=== PATIENT | female | born 1945 | race Caucasian/White ===

== ENCOUNTER 2017-01-13 07:01 | Emergency (ER) | payer MEDICARE ==
--- NOTE | 2017-01-13 07:17 | ED.PDOC ---
History of Present Illness - General Chief Complaint: Trauma Stated Complaint: Low back pain Time Seen by Provider: 01/13/17 07:08 Source: patient, RN notes reviewed, Vital Signs reviewed Exam Limitations: no limitations - History of Present Illness Initial Comments: Patient reports that she slipped and fell onto her bottom this morning and is now experiencing low back pain. Denies any other injury. Did not hit her head. Pain does not radiate. No numbness, tingling or weakness down legs. No bowel/ bladder incontinence. Timing/Duration: 1 hour Severity: moderate Improving Factors: rest Worsening Factors: movement Associated Symptoms: denies symptoms Allergies/Adverse Reactions: Allergies Penicillins Allergy (Verified 01/13/17 07:23) Unknown Sulfa Antibiotics Allergy (Verified 01/13/17 07:23) Unknown Home Medications: Ambulatory Orders Acetamin W/Cod #3 Tab [Tylenol w/CODEINE #3] 1 ea PO Q6HRS PRN #15 tab 01/13/17 Cyclobenzaprine HCl [Flexeril] 5 mg PO Q8HRS PRN #12 tab 01/13/17 Fluticasone/Salmeterol 250/50 [Advair Diskus] 1 puff INH DAILY 01/13/17 Metoprolol Tartrate 01/13/17 metFORMIN XR 01/13/17 Review of Systems - Review of Systems Constitutional: States: no symptoms reported EENTM: States: no symptoms reported Respiratory: States: no symptoms reported Cardiology: States: no symptoms reported Gastrointestinal/Abdominal: States: no symptoms reported Genitourinary: States: no symptoms reported Musculoskeletal: States: see HPI, back pain. Denies: neck pain Skin: States: no symptoms reported Neurological: States: no symptoms reported. Denies: numbness, paresthesia, tingling, weakness Endocrine: States: no symptoms reported Family Medical History - Family History Mother Living Status: Hx Family Diabetes: Yes Physical Exam - Physical Exam General Appearance: Alert, Comfortable, No apparent distress, Well Developed, Well Groomed, Well Hydrated, Well Nourished Neck: non-tender, full range of motion, supple, normal inspection Respiratory: chest non-tender, lungs clear, normal breath sounds, no respiratory distress, no accessory muscle use Cardiovascular/Chest: normal peripheral pulses, regular rate, rhythm, no edema, no gallop, no JVD, no murmur Peripheral Pulses: dorsalis pedis,right: 2+, dorsalis pedis,left: 2+ Gastrointestinal/Abdominal: normal bowel sounds, soft, tenderness - mild, diffuse Back Exam: no CVA tenderness, vertebral tenderness - L spine Extremity: non-tender, normal inspection, no pedal edema Neurologic: no motor/sensory deficits, alert, normal mood/affect, oriented x 3 Skin Exam: normal color, warm/dry Lymphatic: no adenopathy Progress - EKG/XRAY/CT Xray Comments: L-Spine: no ac [place] injury, no fracture. Sacrum: osteoarthritis, no fracture Departure - Departure Clinical Impression: Lumbar back sprain, Contusion Clinical Impression: (Ruled Out): Contusion and laceration of left cerebral hemisphere with loss of consciousness Time of Disposition: 08:08 Disposition: Discharge to Home or Self Care Condition: Good Departure Forms: ED Discharge - Pt. Copy, Patient Portal Self Enrollment Diet: resume usual diet Activity: increase activity as tolerated Prescriptions: Acetamin W/Cod #3 Tab [Tylenol w/CODEINE #3] 1 ea PO Q6HRS PRN #15 tab PRN Reason: Pain -- Moderate To Severe Cyclobenzaprine HCl [Flexeril] 5 mg PO Q8HRS PRN #12 tab PRN Reason: Muscle Spasms Home Medications: Ambulatory Orders Acetamin W/Cod #3 Tab [Tylenol w/CODEINE #3] 1 ea PO Q6HRS PRN #15 tab 01/13/17 Cyclobenzaprine HCl [Flexeril] 5 mg PO Q8HRS PRN #12 tab 01/13/17 Fluticasone/Salmeterol 250/50 [Advair Diskus] 1 puff INH DAILY 01/13/17 Metoprolol Tartrate 01/13/17 metFORMIN XR 01/13/17 Additional Instructions: Follow up with your doctor in 3-5 days
[2017-01-13 07:23] VITALS: TEMP 98.6; O2SAT 94
--- NOTE | 2017-01-13 07:50 | RAD ---
EXAM DESCRIPTION: Lumbar Spine 3 Views CLINICAL HISTORY: Lumbar spine pain. Fall injury FINDINGS/ IMPRESSION: Lumbar spondylosis with no fracture or subluxation. Advanced facet arthrosis L4-5 and L5-S1. Mild levoscoliosis. A few small bridging vertebral osteophytes Electronically signed by: Bautista Henriquez MD 01/13/2017 7:49 AM CDT
--- NOTE | 2017-01-13 07:51 | RAD ---
EXAM DESCRIPTION: Sacrum Coccyx CLINICAL HISTORY: Fall injury. 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 Sacral neural foraminal lines appear intact. No sacral or cortex sagittal fracture. No fracture of the visualized proximal femora. No fracture of the bony pelvis Electronically signed by: Bautista Henriquez MD 01/13/2017 7:50 AM CDT
[2017-01-13] MEDS ORDERED: ACETAMINOPHEN W/COD #3 TAB 1 EA TAB PO ONE (07:55)
[2017-01-13 08:13] VITALS: BP 178/78
== END 2017-01-13 08:14 | disposition home or self-care (01) ==
LOC: ER 07:01
DX: S33.5XXA Sprain of ligaments of lumbar spine, initial encounter (principal); Z88.0 Allergy status to penicillin; Z88.2 Allergy status to sulfonamides; Z79.899 Other long term (current) drug therapy; W01.0XXA Fall on same level from slipping, tripping and stumbling without subsequent striking against object, initial encounter

== ENCOUNTER 2017-01-15 14:43 | Emergency (ER) | payer MEDICARE ==
--- NOTE | 2017-01-15 14:56 | ED.PDOC ---
History of Present Illness - General Chief Complaint: Abdominal Pain Stated Complaint: Vomiting and not eating Time Seen by Provider: 01/15/17 14:44 Information Source: patient, RN notes reviewed, Vital Signs reviewed, EMS Exam Limitations: no limitations - History of Present Illness Initial Comments: Patient does not know why she was brought in. Home health is concerned because she vomited X1 after fall on Wed and now is not eating well. They are also concerned that she is having right hip pain. She was seen here 2 days ago for a fall at home. She fell onto her bottom and was complaining of low back pain at that time. She denied and continues to deny hitting her head. Abdominal Pain Onset Location: generalized abdomen Pain Radiation: no radiation Quality: mild, dull Timing/Duration: days - 2 Improving Factors: nothing Worsening Factors: nothing Associated Symptoms: nausea/vomiting Review of Systems - Review of Systems Constitutional: States: no symptoms reported. Denies: chills, diaphoresis, fever, malaise, weakness EENTM: States: no symptoms reported Respiratory: States: no symptoms reported. Denies: short of breath Cardiology: States: no symptoms reported. Denies: chest pain, syncope Gastrointestinal/Abdominal: States: abdominal pain, nausea, vomiting Genitourinary: States: no symptoms reported Musculoskeletal: States: no symptoms reported. Denies: joint pain Skin: States: no symptoms reported Neurological: States: no symptoms reported. Denies: headache, numbness, paresthesia, tingling, weakness Endocrine: States: no symptoms reported Hematologic/Lymphatic: States: no symptoms reported Past Medical History (General) - Patient Medical History Hx Stroke: No Hx Dementia: Yes Hx of COPD: Yes - Also has seasonal allergies Hx Congestive Heart Failure: No Hx Hypertension: Yes Hx Diabetes: Yes - Vaccination History Hx Influenza Vaccination: No - unknown Hx Pneumococcal Vaccination: No - unknown - Social History Hx Tobacco Use: Yes - Quit 2013 Family Medical History - Family History Mother Living Status: Hx Family Diabetes: Yes Physical Exam - Physical Exam General Appearance: Alert, Comfortable, No apparent distress, Well Developed, Well Groomed, Well Nourished Eyes, Ears, Nose, Throat Exam: PERRL/EOMI, normal ENT inspection, other - Dry mucous membranes Neck: non-tender, full range of motion, supple, normal inspection Respiratory: chest non-tender, lungs clear, normal breath sounds, no respiratory distress, no accessory muscle use Cardiovascular/Chest: regular rate, rhythm, no edema, no gallop, no JVD, no murmur Gastrointestinal/Abdominal: normal bowel sounds, distended, guarding - Diffuse, tenderness - Disfuse Back Exam: no vertebral tenderness Extremity: normal range of motion, non-tender, normal inspection, other - Good ROM w/o pain right hip Neurologic: clinical massage therapist II-XII nml as tested, no motor/sensory deficits, alert, normal mood/affect, oriented x 3 Skin Exam: normal color, warm/dry Progress - Progress Progress: 01/15/17 16:44 Despite normal joint exam sister is requesting that an X-ray of her hip be done. Will order. - Results/Orders Results/Orders: Vital Signs - 24 hr 01/15/17 15:00 Temperature 98.0 F Pulse Rate [ 70 Apical] Respiratory 18 Rate Blood Pressure 172/90 [Left Arm] O2 Sat by Pulse 95 Oximetry Laboratory Tests 01/15/17 15:21 WBC 9.9 RBC 5.19 Hgb 12.7 Hct 39.6 MCV 76.2 L MCH 24.4 L MCHC 32.0 L RDW 16.5 H Plt Count 234 MPV 9.5 Absolute Neuts (auto) 8.20 H Absolute Lymphs (auto) 0.90 L Absolute Monos (auto) 0.70 Absolute Eos (auto) 0.00 Absolute Basos (auto) 0.10 Neutrophils % 83.3 H Lymphocytes % 9.0 L Monocytes % 6.7 Eosinophils % 0.1 L Basophils % 0.9 Sodium 133 L Potassium 3.7 Chloride 91 L Carbon Dioxide 32 H Anion Gap 13.7 BUN 17 Creatinine 0.69 BUN/Creatinine Ratio 24.6 H Random Glucose 263 H Serum Osmolality 277.1 Calcium 9.3 Total Bilirubin 1.2 H AST 66 H ALT 51 Alkaline Phosphatase 196 H Serum Total Protein 7.5 Albumin 3.7 Globulin 3.8 H Albumin/Globulin Ratio 1.0 L Amylase 32 Lipase 26 - EKG/XRAY/CT XRAY: hip - No hip fracture CT Ordered: Yes - Head: No acute intracranial abnormality CT Interpretation Call Back: - Abd/Pelvis - Bilateral adrenal masses, Air- fluid levels in colon, o/w nl Departure - Departure Clinical Impression: Anorexia Lumbar back sprain Qualifiers: Encounter type: subsequent encounter Qualifier Code: (S33.5XXD) Sprain of ligaments of lumbar spine, subsequent encounter Time of Disposition: 17:49 Disposition: Discharge to Home or Self Care Condition: Good Departure Forms: ED Discharge - Pt. Copy, Patient Portal Self Enrollment Instructions: DI for Low Back Pain Diet: resume usual diet Activity: increase activity as tolerated Referrals: [Primary Care Provider] - 1-5 Days Home Medications: Ambulatory Orders Albuterol Sulfate [Proair Hfa] 108 mcg IN TID 01/15/17 Esomeprazole Magnesium [Nexium] 20 mg PO DAILY 01/15/17 Magnesium [Magnesium] 400 mg PO BID 01/15/17 Metformin HCl 500 mg PO BID 01/15/17 Metoprolol Succinate [Metoprolol Succinate ER] 50 mg PO DAILY 01/15/17 Nicotine [Nicotine Transdermal Syst] 7 mg TD DAILY 01/15/17 Potassium Chloride [Potassium Chloride ER] 10 meq PO DAILY 01/15/17
[2017-01-15] MEDS ORDERED: ONDANSETRON INJ 4 MG/2 ML VIAL IV ONE (15:03)
[2017-01-15] MEDS ORDERED: SODIUM CHLORIDE 0.9% 1000ML 1,000 ML IVS ONE (15:03)
[2017-01-15 15:43] VITALS: TEMP 98
--- NOTE | 2017-01-15 16:33 | CT ---
EXAM DESCRIPTION: Abdomen/Pelvis w/Contrast CLINICAL HISTORY: Abd pain/N/V/Anorexia COMPARISON: None Available TECHNIQUE: Contiguous axial images of the abdomen and pelvis were obtained after the administration of intravenous contrast followed by reconstruction images. FINDINGS: Linear and bandlike opacities within the lungs may represent scar versus subsegmental atelectasis. There is atherosclerosis. There are coronary arterial calcifications. There is elevation of the right hemidiaphragm. Patient is status post cholecystectomy. There is dilatation of the biliary system not unusual after cholecystectomy. There is no discrete filling defect/calcification within the common bile duct. There is a 2.6 cm right adrenal gland mass, and at 2.8 cm centimeter left adrenal gland mass. Correlation with a noncontrast CT is recommended for further evaluation unless prior exams are available for comparison. There are multiple renal cysts. There is no hydronephrosis. There are diverticuli without CT evidence of acute diverticulitis. Patient is status post hysterectomy. Air-fluid levels within the ascending colon could be secondary to a diarrheal state. Appendix was not visualized. The liver, spleen, pancreas and kidneys are otherwise within normal limits. There is no hydronephrosis . Aorta is of normal caliber and tapering. There is no free fluid in the abdomen or pelvis. There is no bowel obstruction. There is no stranding of the mesenteric fat to suggest an inflammatory response. IMPRESSION: Air-fluid levels within the colon could be secondary to a diarrheal state, please correlate. Bilateral adrenal gland masses. Recommend comparison with priors and if not available follow-up noncontrast CT for further evaluation. Electronically signed by: Esteban Monterroso MD 01/15/2017 4:32 PM CDT
--- NOTE | 2017-01-15 16:36 | CT ---
EXAM DESCRIPTION: Head CLINICAL HISTORY: N/V/Anorexia s/p fall 2 days ago COMPARISON: None Available. TECHNIQUE: Contiguous axial images of the brain were obtained without the administration of intravenous contrast. FINDINGS: There is no acute intracranial hemorrhage or mass effect. Areas of low attenuation in the periventricular and subcortical white matter are nonspecific but suggestive of small vessel disease. There is generalized atrophy. Ventricular system is within normal limits. There is adequate de souza-white matter differentiation. There is no skull fracture. Patient is status post left eye prosthesis. There is mucoperiosteal thickening of the right maxillary sinus compatible with chronic sinusitis changes. Patchy opacification of the right sphenoid sinus could be secondary to mild acute versus chronic sinusitis changes. IMPRESSION: No acute intracranial abnormalities. Opacification of the posterior aspect of the right sphenoid sinus with questionable fluid level could be secondary to mild acute versus chronic sinusitis changes. Electronically signed by: Esteban Monterroso MD 01/15/2017 4:35 PM CDT
--- NOTE | 2017-01-15 17:35 | RAD ---
EXAM DESCRIPTION: Hip Bilateral CLINICAL HISTORY: pain s/p fall 2 days ago tab COMPARISON: None FINDINGS: Two views of both hips were submitted. There is no acute fracture or dislocation. There is diffuse joint space narrowing. There is no radiopaque foreign body material. IMPRESSION: No acute abnormalities Electronically signed by: Esteban Monterroso MD 01/15/2017 5:34 PM CDT
[2017-01-15] MEDS ORDERED: METOPROLOL TARTRATE 50 MG TAB PO ONE (18:39)
[2017-01-15 18:53] VITALS: BP 160/100; O2SAT 98
== END 2017-01-15 18:51 | disposition home or self-care (01) ==
LOC: ER 14:43
DX: S33.5XXD Sprain of ligaments of lumbar spine, subsequent encounter (principal); F50.89 Other specified eating disorder; M25.551 Pain in right hip; J44.9 Chronic obstructive pulmonary disease, unspecified; F03.90 Unspecified dementia, unspecified severity, without behavioral disturbance, psychotic disturbance, mood disturbance, and anxiety; Z87.891 Personal history of nicotine dependence; Z79.899 Other long term (current) drug therapy; W19.XXXD Unspecified fall, subsequent encounter

== ENCOUNTER 2017-01-22 10:46 | Inpatient (IN) | payer MEDICARE ==
[2017-01-22] MEDS ORDERED: SODIUM CHLORIDE 0.9% 1000ML 500 ML IVS ONE (11:12)
--- NOTE | 2017-01-22 11:46 | CT ---
EXAM DESCRIPTION: Head CLINICAL HISTORY: ams COMPARISON: January 15, 2017 TECHNIQUE: Noncontrast transaxial CT images of the head are obtained from base to vertex. CT scan was done according to ALARA (As Low as Reasonably Achievable). FINDINGS: The midline structures are not displaced. Sulci are age-appropriate. There are areas of decreased attenuation in the periventricular white matter and the white matter of the centrum semiovale. There is no evidence of mass, mass-effect, hydrocephalus, or acute intracranial hemorrhage. No abnormal extra axial fluid collection is seen. Bone windows show no evidence of depressed skull fracture. Left ocular prosthesis is again seen. Mucosal thickening in the posterior right sphenoid sinus is again noted with question of air-fluid level. Calcifications of the intracranial carotid arteries is seen. IMPRESSION: 1. Age-appropriate atrophy with evidence of old small vessel ischemic type changes seen. 2. No acute abnormality is seen on noncontrast CT of the head. 3. There remains opacification involving the posterior aspect of the right sphenoid sinus that could represent mucosal thickening versus small air-fluid level. Electronically signed by: Jc Matthews MD 01/22/2017 11:45 AM CDT
--- NOTE | 2017-01-22 12:00 | RAD ---
EXAM DESCRIPTION: Chest,1 View CLINICAL HISTORY: ams COMPARISON: November 06, 2016 IMPRESSION: Single AP portable upright view of the chest shows enlargement of the cardiomediastinal silhouette without pulmonary vascular congestion. There is tortuosity the thoracic aorta. Lungs are normally aerated and clear. Elevation of the right hemidiaphragm is seen. No obvious pleural effusion or pneumothorax is seen. Severe degenerative changes of the shoulders are seen. Electronically signed by: Jc Matthews MD 01/22/2017 11:59 AM CDT
--- NOTE | 2017-01-22 14:05 | ED.PDOC ---
History of Present Illness - General Chief Complaint: Neuro Symptoms/Deficits Stated Complaint: change in mental status Time Seen by Provider: 01/22/17 11:02 Source: patient, other Exam Limitations: clinical condition - History of Present Illness Initial Comments: The patient is a 71-year-old female presenting to the emergency room by ambulance due to altered mental status. According to the roommate her mental status has been worsening over the last week. She has not been getting up and moving around. She has not been eating or drinking very much. There has been questionable compliance with some of her medications. The patient was at a [facility] up until 3 or 4 weeks ago and doing well. She went back home and had a couple of falls and was apparently placed on Tylenol No. 3 and Flexeril for pain related to those falls as well as chronic low back pain. Over the last week or 2 she has become a little more confused with each passing day along with some slurring of her speech. No real focal neurological deficits. She has been sleeping a whole lot. Today her speech is slurred. She knows she is at the [facility]. She recognizes her roommate. She is able to give me her birthdate. She is significantly off on today's date. She does not know any of her medications. She does sometimes loses her train of thought midsentence. No difficulty with swallowing. She has very weak with trying to stand. She moves all extremities well. 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 No vomiting or diarrhea. No chest pain or shortness of breath. She does feel weak in general. No fevers. No headache. No neck stiffness. No rashes. Timing/Duration: unsure, 1 week Severity: moderate Improving Factors: nothing Worsening Factors: nothing, medication Associated Symptoms: loss of appetite, malaise, weakness Allergies/Adverse Reactions: Allergies Penicillins Allergy (Verified 01/13/17 07:23) Unknown Sulfa Antibiotics Allergy (Verified 01/13/17 07:23) Unknown Promethazine [From Phenergan] Adverse Reaction (Verified 01/15/17 15:46) Home Medications: Ambulatory Orders Albuterol Sulfate [Proair Hfa] 108 mcg IN TID 01/15/17 Esomeprazole Magnesium [Nexium] 20 mg PO DAILY 01/15/17 Magnesium [Magnesium] 400 mg PO BID 01/15/17 Metformin HCl 500 mg PO BID 01/15/17 Metoprolol Succinate [Metoprolol Succinate ER] 50 mg PO DAILY 01/15/17 Nicotine [Nicotine Transdermal Syst] 7 mg TD DAILY 01/15/17 Potassium Chloride [Potassium Chloride ER] 10 meq PO DAILY 01/15/17 Review of Systems - Review of Systems Constitutional: States: malaise, weakness EENTM: States: no symptoms reported Respiratory: States: no symptoms reported Cardiology: States: no symptoms reported Gastrointestinal/Abdominal: States: other - anorexia Genitourinary: States: no symptoms reported Musculoskeletal: States: back pain Skin: States: no symptoms reported Neurological: States: weakness - generalized Hematologic/Lymphatic: States: no symptoms reported All other Systems: No Change from Baseline Past Medical History (General) - Patient Medical History Hx Stroke: No Hx Dementia: Yes Hx Asthma: Yes Hx of COPD: Yes - Also has seasonal allergies Hx Congestive Heart Failure: No Hx Hypertension: Yes Hx Diabetes: Yes Hx Cancer: Yes - Cervical - Vaccination History Hx Tetanus, Diphtheria Vaccination: No Hx Influenza Vaccination: No Hx Pneumococcal Vaccination: No - unknown - Social History Hx Tobacco Use: Yes - Quit 2013 Hx Alcohol Use: No Hx Substance Use: No Hx Depression: No - Female History Patient is a Female of Child Bearing Age (10 -59 yrs old): No Family Medical History - Family History Mother Family History: Unknown Living Status: Hx Family Diabetes: Yes Physical Exam - Physical Exam General Appearance: Other - alert and oriented2. Eye Exam: right normal, left other - false eye Ears, Nose, Throat: normal ENT inspection - mucous membranes are mildly dry Neck: non-tender, full range of motion, supple Respiratory: chest non-tender, lungs clear, normal breath sounds, no respiratory distress, no accessory muscle use Cardiovascular/Chest: normal peripheral pulses, no edema, other - regular rate Peripheral Pulses: radial,right: 2+, radial,left: 2+, dorsalis pedis,right: 2+, dorsalis pedis,left: 2+, posterior tibialis,right: 1+, posterior tibialis,left: 1+ Gastrointestinal/Abdominal: normal bowel sounds, non tender, soft Rectal Exam: deferred Back Exam: normal inspection, no CVA tenderness Extremity: normal range of motion, non-tender, normal inspection, no pedal edema , normal capillary refill Neurologic: other - see above Skin Exam: normal color Comments: Vital Signs - 24 hr 01/22/17 01/22/17 10:55 13:01 Temperature 97.4 F L Pulse Rate [ 63 60 Left Radial] Respiratory 20 20 Rate Blood Pressure 138/79 128/71 [Left Arm] O2 Sat by Pulse 83 L 96 Oximetry Progress - Progress Progress: 01/22/17 14:10 the patient is a 71-year-old female presenting to the emergency room secondary to progressive delirium. The timing does seem to coincide with her starting Tylenol No. 3 and Flexeril. It is possible these are building up on her and causing significant confusion. These will be held. Additionally the patient is mildly dehydrated and has received 500 cc of normal saline. The patient does need to be monitored closely over the next 24 hours to make sure her mental status is returning to normal. If it is not then another etiology may need to be found. Admit for observation for delirium, most likely medication induced. - Results/Orders Results/Orders: 01/22/17 11:10 Telemetry .CONTINUOUS 01/22/17 11:25 BLOOD CULTURE Stat Laboratory Results - last 24 hr 01/22/17 01/22/17 11:25 12:43 WBC 8.5 RBC 5.23 Hgb 12.7 Hct 40.5 MCV 77.4 L MCH 24.4 L MCHC 31.5 L RDW 16.9 H Plt Count 267 MPV 9.7 Absolute Neuts (auto) 6.50 Absolute Lymphs (auto) 1.20 Absolute Monos (auto) 0.80 Absolute Eos (auto) 0.00 Absolute Basos (auto) 0.10 Neutrophils % 75.8 Lymphocytes % 14.4 L Monocytes % 8.8 Eosinophils % 0.4 L Basophils % 0.6 PT 12.1 INR 1.070 PTT (SP) 33.1 Sodium 133 L Potassium 4.4 Chloride 89 L Carbon Dioxide 37 H Anion Gap 11.4 L BUN 29 H Creatinine 0.89 BUN/Creatinine Ratio 32.6 H Random Glucose 189 H Serum Osmolality 277.2 Calcium 8.7 Magnesium 2.3 Total Bilirubin 0.9 AST 17 ALT 14 Alkaline Phosphatase 138 H Creatine Kinase 78 CK-MB (CK-2) 1.4 CK-MB (CK-2) % Not Reportable Troponin I < 0.02 B-Natriuretic Peptide 573.0 H* Serum Total Protein 6.9 Albumin 3.3 Globulin 3.6 H Albumin/Globulin Ratio 0.9 L TSH 3.93 Urine Color Yellow Urine Appearance Sl cloudy Urine pH 5.5 Ur Specific [place] 1.020 Urine Protein Trace Urine Glucose (UA) Negative Urine Ketones Negative Urine Blood Negative Urine Nitrite Negative Urine Bilirubin Negative Urine Urobilinogen 0.2 Ur Leukocyte Esterase Negative Urine RBC 0 Urine WBC 0-1 Ur Epithelial Cells 1-3 Urine Bacteria 1+ chest x-ray shows mild cardiomegaly but no overt fluid overload. no Significant infiltrate. head CT shows no evidence of a stroke. There is possible mild sphenoid sinusitis. Departure - Departure Clinical Impression: Delirium, Dehydration Disposition: Admit Patient Departure Forms: ED Discharge - Pt. Copy Home Medications: Ambulatory Orders Albuterol Sulfate [Proair Hfa] 108 mcg IN TID 01/15/17 Esomeprazole Magnesium [Nexium] 20 mg PO DAILY 01/15/17 Magnesium [Magnesium] 400 mg PO BID 01/15/17 Metformin HCl 500 mg PO BID 01/15/17 Metoprolol Succinate [Metoprolol Succinate ER] 50 mg PO DAILY 01/15/17 Nicotine [Nicotine Transdermal Syst] 7 mg TD DAILY 01/15/17 Potassium Chloride [Potassium Chloride ER] 10 meq PO DAILY 01/15/17 Decision To Admit - Decistion To Admit Decision to Admit Reason: Medical Nature Decision to Admit Date: 01/22/17 Decision to Admit Time: 14:12
--- NOTE | 2017-01-22 14:27 | HP ---
SUPERVISING PHYSICIAN: Bautista Leroy MD CHIEF COMPLAINT: Change in mental status. HISTORY OF PRESENT ILLNESS: Ms. Mitchell is a 71 year-old female patient who presented to the Emergency Room today via ambulance due to altered mental status. She does live with her sister and according to her, the patient' s mental status has been worsening over the last week. She has been ambulatory but has not been eating or drinking very much and has recently been in the Emergency Room in the last several weeks for multiple falls with the last being on 01/15 when she was given pain medicine that included Tylenol No. 3 and muscle relaxants with Flexeril. The patient is a very poor historian and most of the history has been reviewed from Emergency Room records and the patient's sister. The patient has recently been discharged from the [facility] in the last 4 weeks and was doing well. However, she did return home and had a couple of falls again at which time she was seen in the Emergency Room and placed on pain medicines and muscle relaxants. Her sister notes over the last 2 weeks that she has become a little more confused with each day and has begun slurring her speech. There was question from the sister whether or not the patient was compliant with her medications and had been taking too much of her pain medication and the Flexeril and possibly resulting in her symptomatology. She had also been recently treated for a urinary tract infection at [facility] and was also given Tramadol for continued pain in her back. Laboratory studies in the Emergency Department showed her to have a normal white count without a shift and a normal hemoglobin and hematocrit. Chemistries showed that she had a low sodium of 133 and slightly elevated BUN compared to previous day of 29 with a creatinine of 0.89. Glucose was 98. Liver functions also showed to be within normal limits except for a slightly elevated alkaline phosphatase and compared to the past admission had shown an improvement. Troponin was less than 0.02. She did have a slightly elevated BNP of 573. TSH was normal at 3.93. Urinalysis showed that chemical analysis on dipstick was within normal limits but she had 1+ bacteria but no white cells or red cells noted. She also had studies radiographically that included CT of the head without contrast to further rule out a possible stroke and per radiology interpretation there was note of age-appropriate atrophy with some evidence of small vessel ischemic changes but no acute abnormalities on a noncontrast CT of the head. The sister notes that the patient had also been having some diarrhea over the last several days since she had been on antibiotics and again, had not been eating or drinking to any extent within the last 3 days. Given the fact that the patient was also dehydrated, had possibly just been treated for a urinary tract infection that was not successful and was possibly not compliant with current medication regimen with pain medications to include Tylenol No. 3 and muscle relaxants, the patient was placed in observation tonight for close monitoring of neurological status as well as placed on telemetry. She was admitted to the medical/surgical floor in stable condition. PAST MEDICAL HISTORY: 1. Hypertension. 2. Type 2 diabetes mellitus on oral therapy. 3. Mild anxiety and depression disorder.. 4. Chronic obstructive lung disease. 5. Chronic lower back pain with history of multiple falls within the last several weeks. 6. History of dementia. PAST SURGICAL HISTORY: 1. Appendectomy. 2. Knee surgery. 3. Hysterectomy. 4. Eye surgery in 1959 with a glass eye on the left side. CURRENT MEDICATIONS: Please review the electronic medical records for an updated list and verified medications. ALLERGIES: CODEINE, PENICILLIN, SULFA ANTIBIOTICS, PROMETHAZINE FAMILY HISTORY: None available due to patient's inability to answer questions and confusional state. 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 She does currently live with a sister, having been recently discharged from [facility]. She does have a history of smoking but no mention of history of drinking alcohol or illicit drug use. REVIEW OF SYSTEMS: Per sister, the patient has been progressively becoming more weak and complaining of malaise over the last several weeks. She notes that the patient has not had any significant symptoms regarding HEENT. RESPIRATORY: She does have chronic obstructive pulmonary disease but has not had any upper respiratory symptoms or worsening cough. CARDIOVASCULAR: the patient has not had any complaints of previous chest pain or syncopal episodes. GENITOURINARY: She does have a history of recently being treated for a urinary tract infection. GASTROINTESTINAL: As noted per family, the patient is anorexic and has had some diarrhea in the last 24 to 48 hours. NEUROLOGICAL: As noted in the history of present illness, severe weakness, confusional state. PHYSICAL EXAMINATION: VITAL SIGNS: Temperature 97.0, pulse 60, blood pressure 120/70, respirations 20. 02 saturation 95% on 2 liters nasal cannula. GENERAL: The patient is very unkempt, disheveled. She is alert to herself and her surroundings and is pleasantly confused. HEENT: Tympanic membranes are clear bilaterally. Oropharynx is pink with dry mucous membranes, there are no lesions. Eyes show a false eye on the left, right shows equal pupil with no nystagmus. NECK: Supple without any jugular venous distention. CHEST: Lungs are clear bilaterally without any rhonchi, rales, or wheezes. CARDIOVASCULAR: Regular rate and rhythm without appreciable murmurs, rubs, or gallops. ABDOMEN: Obese with positive bowel sounds with some mild tenderness in the left upper and lower quadrants but no rebound tenderness. EXTREMITIES: No cyanosis, clubbing, or edema. NEUROLOGIC: As noted in history of present illness, patient is quite confused and unable to follow basic commands or participate in a full neurological exam, but there are no obvious weaknesses noted with minimal exam. She is alert x2 and at times is hallucinating visually and auditory. LABORATORY: White count 8.5 with hemoglobin 12.7 and hematocrit 40.5 with platelet count 267,000. Differential did not show a left shift. Coagulation studies showed normal PT/PTT. Chemistries showed low sodium of 133 with BUN of 29, creatinine 0.89, glucose 189, [id number] 8.7, magnesium 2.3. Liver functions showed to be within normal limits except for a slightly elevated alkaline phosphatase. Cardiac enzymes showed normal CPK with troponin being normal at less than 0.02. She did have an elevated BNP of 573. TSH was normal at 3.93. Urinalysis in the Emergency Department showed to be negative on dipstick but 1+ bacteria on microscopic exam. Culture was sent for analysis. Toxicology included salicylate less than 4, acetomorphine less than 10 and urine drug screen showed to be negative for all substances tested. MICROBIOLOGY: Urine culture is pending. Blood cultures are pending. RADIOLOGY: Initial head CT without contrast in the Emergency Department per radiology interpretation showed age-appropriate atrophy with evidence of a small vessel ischemic type changes with no acute abnormalities seen on a noncontrast CT of the head. Chest x-ray per radiology interpretation showed no obvious pleural effusions or pneumothorax. There was note of enlargement of the cardiomediastinal silhouette without pulmonary vascular congestion. CT of the pelvis and abdomen without contrast is pending. ASSESSMENT: 1. Acute delirium state possibly secondary to underlying urinary tract infection having failed to respond to treatment as well as some dehydration. 2. Moderate dehydration contributing to #1. 3. Possible urinary tract infection having been recently treated with antibiotics with culture results currently pending, the patient being started on parenteral antibiotics possibly exacerbating #1. 4. History of Alzheimer's with possibility of acute exacerbation secondary to multiple medical problems in regards to the delirium with underlying urinary tract infection, hydration and hyponatremia. 5. Hyponatremia, moderate, unknown etiology, possibly contributing to delirium and acute confusional state. 6. Hypertension. 7. Chronic obstructive pulmonary disease in a former smoker. 8. History of depression and anxiety. 9. Type 2 diabetes mellitus or oral therapy to include metformin. 10. History of recent falls within the last 2 weeks having been treated with Tylenol No. 3 as well as Flexeril with the patient possibly not being totally compliant with medication regiment resulting in excessive sedation from pain medication and muscle relaxants. 11. Dehydration secondary to confusion and poor oral intake possibly exacerbating acute confusional and delirium state. PLAN: The patient will be placed in observation tonight with every 4 hours neurological checks and telemetry and close monitoring. Will plan to hydrate the patient with IV fluids with normal saline and a multivitamin infusion with some thiamin. The patient does not have a history mentioned in her chart of alcohol, however, given the patient's confusion and delirium, certainly need to treat for possible acute withdrawal symptoms. Will start her on an insulin sliding scale and resume her home medications once those have been updated and verified in the computer. She will be under fall precautions with close monitoring. Will anticipate length of stay to be 1 to 2 days, hopefully to discharge later this weekend. With regards to a possible underlying urinary tract infection, a culture has been sent to the laboratory and will await final culture results to further with antibiotics. Currently, antibiotic therapy will include Rocephin 1 gram every 12 hours until final culture results are available. Will also plan to do a CT of the abdomen as the patient is having some discomfort once she was admitted. Will monitor patient closely and until discharge continue to treat appropriately. #[id number] [facility]
[2017-01-22] MEDS ORDERED: GLUCAGON INJ 1 MG VIAL SUBCU PRN (15:24)
[2017-01-22] MEDS ORDERED: DEXTROSE 50% 25 GM/50 ML SYG IV PRN (15:24)
[2017-01-22] MEDS ORDERED: KCL 20 MEQ/NS 1,000 ML IVS PRN (15:28)
[2017-01-22] MEDS ORDERED: SODIUM CHL 0.9% 50ML MIN-BAG+ 50 ML IVPB ONE ×2 (15:32→19:51)
[2017-01-22] MEDS ORDERED: cefTRIAXone SODIUM 1 GM VIAL ONE ×2 (15:33→19:51)
[2017-01-22] MEDS: ALBUTEROL SULFATE 2.5 MG/3 ML VIAL NEB PRN (15:44)
[2017-01-22] MEDS: IV SET AND CAP CHANGE INJ INJ SCH (15:52)
[2017-01-22] MEDS: cefTRIAXone SODIUM 1 GM in SODIUM CHL 0.9% 50ML MIN-BAG+ 50 ML IVPB SCH (15:52)
--- NOTE | 2017-01-22 16:10 | CT ---
EXAM DESCRIPTION: Abdoment/Pelvis w/o Contrast CLINICAL HISTORY: Left side abdominal pain COMPARISON: 15 January 2017 TECHNIQUE: Transaxial images were obtained without intravenous or oral contrast media. Sagittal and coronal reconstruction was performed. FINDINGS: Minimal atelectatic type parenchymal changes observed in the right lung base. The liver and spleen are unremarkable. The gallbladder is been previously removed. Mild dilatation of the common bile duct is observed. No intrahepatic biliary ductal dilatation is observed. Coronary artery calcification is noted. The pancreas is normal in appearance. A low-density left adrenal mass is observed measuring 2.777 m in diameter. There is also a right adrenal mass measuring 2.36cm in diameter. No free fluid is observed. The patient is post hysterectomy. Imaging of the kidneys reveals no evidence of hydronephrosis mass or calcification. A simple cyst is observed in the anterior aspect of the right kidney measuring 1.67 cm in diameter. Diverticulosis of the colon is observed without evidence of diverticulitis. No further bowel abnormality is seen. Degenerative changes are observed in the lumbar spine. IMPRESSION: 1. Atelectatic type parenchymal changes are observed in the right lung base. 2. The patient is postcholecystectomy and there is mild persistent dilatation of the common bile duct. 3. Bilateral low-density adrenal masses are observed and felt to represent adrenal adenomas. 4. Uncomplicated diverticulosis of the colon Electronically signed by: Gallo Kirby MD 01/22/2017 4:09 PM CDT
[2017-01-22] MEDS ORDERED: INSULIN LISPRO 100 UNITS/ML PEN SUBCU SCH (16:30)
[2017-01-22] MEDS: INSULIN LISPRO 100 UNITS/ML PEN SUBCU SCH ×2 (16:46→21:13)
[2017-01-22] MEDS ORDERED: MULTIPLE VITAMIN INJ 10 ML, THIAMINE HCL INJ 100 MG in SODIUM CHLORIDE 0.9% 1000ML 1,00... IV SCH (19:30)
[2017-01-22] MEDS ORDERED: SODIUM CHLORIDE 0.9% 1000ML 1,000 ML ONE (19:52)
[2017-01-22] MEDS ORDERED: MULTIPLE VITAMIN 10 ML VIAL ONE (19:53)
[2017-01-22] MEDS ORDERED: SERTRALINE HCL 50 MG TAB ONE (19:53)
[2017-01-22] MEDS ORDERED: THIAMINE HCL INJ 100 MG/ML VIAL ONE (19:58)
[2017-01-22] MEDS: SODIUM CHLORIDE 0.9% (FLUSH) 10 ML SYG IV PRN (20:08)
[2017-01-22] MEDS ORDERED: NON-FORMULARY MEDICATION 1 EA MIS (Sertraline Hcl [Sertraline Hcl] 100 MG) PO SCH (21:00)
[2017-01-22] MEDS ORDERED: HALOPERIDOL LACTATE INJ 5 MG/ML VIAL IM ONE (21:40)
[2017-01-23] MEDS ORDERED: cloNIDine HCL 0.1 MG TAB PO ONE ×2 (02:12→03:01)
[2017-01-23] MEDS: SODIUM CHLORIDE 0.9% (FLUSH) 10 ML SYG IV PRN ×2 (02:28→23:20)
[2017-01-23] MEDS: cefTRIAXone SODIUM 1 GM in SODIUM CHL 0.9% 50ML MIN-BAG+ 50 ML IVPB SCH ×2 (03:13→15:35)
[2017-01-23] MEDS: INSULIN LISPRO 100 UNITS/ML PEN SUBCU SCH ×4 (07:44→21:15)
[2017-01-23] MEDS: POTASSIUM CHLORIDE 10 MEQ TAB PO SCH ×2 (08:03)
[2017-01-23] MEDS: metFORMIN HCL 500 MG TAB PO SCH ×3 (08:03→17:08)
[2017-01-23] MEDS: METOPROLOL SUCCINATE XL 50 MG TAB PO SCH (08:41)
[2017-01-23] MEDS ORDERED: SODIUM CHLORIDE 0.9% 1000ML 1,000 ML ONE ×2 (08:50→23:06)
[2017-01-23] MEDS ORDERED: THIAMINE HCL INJ 100 MG/ML VIAL ONE ×2 (08:51→23:06)
[2017-01-23] MEDS ORDERED: MULTIPLE VITAMIN 10 ML VIAL ONE ×2 (08:51→23:07)
[2017-01-23] MEDS: MULTIPLE VITAMIN INJ 10 ML, THIAMINE HCL INJ 100 MG in SODIUM CHLORIDE 0.9% 1000ML 1,00... IV SCH (09:26)
--- NOTE | 2017-01-23 11:19 | PCM.CORE ---
Physician DVT/VTE - Nurse DVT Assessment & Total Each Risk Factor Represents 2 Points: Age 60-74 Each Risk Factor Represents 1 Point: Hx of smoking past year Each Risk Factor is 1 Point: Obesity (BMI >25) DVT Assessment Score: 4 - 5 or more Very High Risk Treatments: Early Ambulation *, Sequential Compression Device Pharmacological: Enoxaparin 40mg SQ Daily
[2017-01-23] MEDS ORDERED: ENOXAPARIN SODIUM 40 MG/0.4 ML SYG SUBCU SCH (11:30)
--- NOTE | 2017-01-23 15:09 | PN ---
DATE: 01/23/17 SUPERVISING PHYSICIAN: Bautista Leroy M.D. SUBJECTIVE: The patient had a fairly active night. I was called multiple times by the nurses saying that the patient was very agitated, combative at times and trying to crawl out of bed. She was given some Haldol and Ativan last night and this morning she was resting comfortably. OBJECTIVE: VITAL SIGNS: T max 98.2, pulse 67, blood pressure 145/85, respirations 20, O2 sat 95% on 2 liters nasal cannula. I's and O's are difficult to manage adequately because the patient is incontinent. GENERAL: The patient is resting. Appears to be in no acute distress. She is lethargic this morning and quite hard to wake up, but will open her eyes to loud stimulus. CHEST: Lungs are clear, just slightly diminished towards the bases. HEART: Regular rate and rhythm. ABDOMEN: Obese but soft, non-tender. Positive bowel sounds. EXTREMITIES: No clubbing, cyanosis or edema. NEUROLOGIC: She is lethargic but arousable with loud stimulus. LABORATORY: White count remains normal at 8.6, hemoglobin 12.8, hematocrit 40.8 , platelet count 256,000. Differential remains without a left shift. Chemistries show normal electrolytes with potassium 3.9, carbon dioxide is 35 but decreased from admission of 37, BUN 19, creatinine 0.89, glucoses have been 122 to 186. Liver function this morning showed to be within normal limits. Ammonia level was normal at 8. Alkaline phosphatase was slightly elevated at 134. MICROBIOLOGY: Blood cultures times 2 remain negative. Urine culture preliminary shows no growth after 24 hours. RADIOLOGY: Abdominal/pelvic CT performed yesterday after admission showed per radiology interpretation atelectatic type parenchymal changes observed in the right lung and bilateral lower densities adrenal masses are observed and felt to represent adrenal adenomas and also mentioned was uncomplicated diverticulosis of the colon. ASSESSMENT: 1. Acute delirium state on admission possibly secondary to underlying urinary tract infection that appears to have been treated as an outpatient complicated by some dehydration as well as possible medication regimen to include pain medicine and muscle relaxants. 2. Moderate dehydration likely contributing to number 1 showing some improvement after IV therapy. 3. Previous underlying urinary tract infection having been treated with antibiotics with current culture showing no growth preliminary at 24 hours with the patient remaining on parenteral antibiotics to include Rocephin. 4. History of Alzheimer's with acute exacerbation likely secondary to underlying medical problems that include delirium with underlying urinary tract infection, dehydration and hyponatremia. 5. Hyponatremia on admission, moderate, possibly contributing to initial delirium and acute confusional state showing improvement after IV therapy. 6. Chronic obstructive pulmonary disease in a former smoker without any exacerbation noted. 7. History of depression and anxiety. 8. Type 2 diabetes mellitus on oral therapy to include Metformin. 9. History of recent falls in the last 2 weeks having been treated in the [facility] with Tylenol #3 as well as Flexeril possibly causing complication of medical presentation due to noncompliance with medication regimen and excessive sedation from prescribed medication. 10. Severe insomnia with family mentioning the patient had very little sleep within the last 4 days possibly exacerbating number 1. PLAN: The patient will continue in Observation. She is sleeping this morning after Haldol and Ativan. Will continue to monitor closely and continue with IV fluids to include multivitamin infusion with thiamine. Current workup is without any major significant findings to explain the patient's delirium. Possibly the majority of this is related to the excessive medication usage from prescriptions prescribed in the [facility] when she had her falls on top of severe insomnia relating to possible Sundowners. Will continue to monitor her blood cultures and await final culture results of her urine, and continue with Rocephin 1 gram every 12 hours. Until discharge, will continue to monitor the patient closely and treat appropriately. #[id number] [facility]
[2017-01-23] MEDS ORDERED: cefTRIAXone SODIUM 1 GM VIAL ONE (15:18)
[2017-01-23] MEDS ORDERED: SODIUM CHL 0.9% 50ML MIN-BAG+ 50 ML IVPB ONE (15:18)
[2017-01-23] MEDS: ALBUTEROL SULFATE 2.5 MG/3 ML VIAL NEB PRN (15:45)
[2017-01-23] MEDS: SERTRALINE HCL 50 MG TAB PO SCH (20:36)
[2017-01-24] MEDS ORDERED: SODIUM CHL 0.9% 50ML MIN-BAG+ 50 ML IVPB ONE ×3 (03:04→18:37)
[2017-01-24] MEDS ORDERED: cefTRIAXone SODIUM 1 GM VIAL ONE ×3 (03:04→18:37)
[2017-01-24] MEDS: SODIUM CHLORIDE 0.9% (FLUSH) 10 ML SYG IV PRN (03:12)
[2017-01-24] MEDS: cefTRIAXone SODIUM 1 GM in SODIUM CHL 0.9% 50ML MIN-BAG+ 50 ML IVPB SCH ×2 (03:13→15:36)
[2017-01-24] MEDS: INSULIN LISPRO 100 UNITS/ML PEN SUBCU SCH ×4 (07:10→21:03)
[2017-01-24] MEDS ORDERED: SODIUM CHLORIDE 0.9% 1000ML 1,000 ML ONE (07:11)
[2017-01-24] MEDS ORDERED: ENOXAPARIN SODIUM 40 MG/0.4 ML SYG SUBCU ONE (07:12)
[2017-01-24] MEDS ORDERED: THIAMINE HCL INJ 100 MG/ML VIAL ONE (07:12)
[2017-01-24] MEDS ORDERED: MULTIPLE VITAMIN 10 ML VIAL ONE (07:13)
[2017-01-24] MEDS: metFORMIN HCL 500 MG TAB PO SCH ×2 (07:36→16:47)
[2017-01-24] MEDS: POTASSIUM CHLORIDE 10 MEQ TAB PO SCH (07:36)
[2017-01-24] MEDS: ENOXAPARIN SODIUM 40 MG/0.4 ML SYG SUBCU SCH (08:31)
[2017-01-24] MEDS: METOPROLOL SUCCINATE XL 50 MG TAB PO SCH (08:32)
[2017-01-24] MEDS: ALBUTEROL SULFATE 2.5 MG/3 ML VIAL NEB PRN (08:40)
[2017-01-24] MEDS: MULTIPLE VITAMIN INJ 10 ML, THIAMINE HCL INJ 100 MG in SODIUM CHLORIDE 0.9% 1000ML 1,00... IV SCH (11:09)
--- NOTE | 2017-01-24 18:26 | PN ---
DATE: 01-24-17 SUPERVISING PHYSICIAN: Bautista Leroy MD SUBJECTIVE: The patient is much more alert this morning. She still is confused as to where she is at, she is able to tell me what she used to do for a living, where she worked and what her sister's name is but is unable to tell me the year, location and as to what has happened to her in the last week. She remains afebrile. She has had no nausea or vomiting and has no longer had any diarrhea. OBJECTIVE: VITAL SIGNS: T max 98.1, pulse 95, blood pressure 127/77, respirations 20, O2 sat 90% on 2 liters nasal cannula. I's and O's once again are not measured accurately as the patient is incontinent. She did have a couple of bowel movements, weight is 99.2 kg. GENERAL: The patient is alert, still confused but is no longer anxious and combative. Is very pleasant. CHEST : Lungs are clear, just diminished towards the bases. No rhonchi or wheezing noted. HEART: Regular rate and rhythm. ABDOMEN: Obese but soft, non-tender. Positive bowel sounds. EXTREMITIES: No clubbing, cyanosis or edema. NEUROLOGIC : She is alert to herself and family members and remains confused as to where she is, why she is here and the year. There are no notable localizing or focalizing neuromotor deficits. LABORATORY: White count remains normal at 7.9, hemoglobin 12.2, hematocrit 38.9 , platelet count 236,000. Differential shows to be within normal limits. Chemistries show sodium 138, potassium 3.7, BUN 12, creatinine 0.66, glucoses have been 112 to 153, calcium 8.7. MICROBIOLOGY: Stool cultures showed no enteric pathogens at 24 hours. Stool leukocytes did show a positive leukocyte, Clostridium difficile toxin A & b negative. Urine cultures showed no growth at 48 hours and blood cultures remained negative x2 at 48 hours. ASSESSMENT: 1. Altered mental status likely sedimentation to combination of urinary tract infection, has been treated as an outpatient complicated by dehydration and a misuse of medications that included pain medication and muscle relaxants. Patient is showing some slight improvement. 2. Moderate dehydration contributing to #1 showing improvement after IV therapy. 3. Previous underlying urinary tract infection having been treated with antibiotics prior to admission with final culture results on admission showing no growth at 24 hours with the patient remaining on parenteral antibiotics to include Rocephin, showing improvement. 4. History of Alzheimer's exacerbated secondary to the multiple underlying medical conditions that include altered mental status, urinary tract infection, dehydration and hyponatremia. 5. Hyponatremia on admission, moderate, improved after IV therapy likely contributing to her altered mental status. . 6. Chronic obstructive pulmonary disease in a former smoker without any exacerbation noted. 7. History of depression and anxiety. 8. Type 2 diabetes mellitus on oral therapy to include Metformin, stable. 9. History of recent falls in the last 2 weeks having been treated in the [facility] with Tylenol #3 as well as Flexeril with the patient being noncompliant and overusing her medications as directed resulting in excessive sedation and possibly contributing to previous falls as well as underlying urinary tract infection could be contributing to her multiple falls prior to admission. 10. Severe insomnia secondary to patient's altered mental status showing improvement after Ativan and Haldol with the patient sleeping well over 15 hours in the last 24 showing improvement this morning. PLAN: Will continue with patient's care. Will patient patient in full admission status as the patient is slowly showing improvement, however, she remains confused and ultimately the discharge planning will need to take place as far as where she should go back home. She has been at [facility] and has since moved from there in with a niece. In talking with her sister, she feels the patient will be better served by going back to [facility] as she is not getting complete care at home. Part of the altered mental status was likely due to poor compliance with the medication regimen which could be prevented in the future by better control of medications either with Home Health or again, placement in a SNF unit. Will continue with another day of antibiotics to fully cover for any underlying infection such as previous urinary tract infection. She will have one more day of multivitamin infusion with thiamin as she is starting to have a fairly good intake orally. Will anticipate discharge after discharge planning, to help with this will consult with social organization professor, Mariam, Anticipate she will can possibly discharged in 1 or 2 more days. Until the, we will continue to monitor patient closely and treat appropriately. #[id number] [facility]
[2017-01-24] MEDS: SERTRALINE HCL 50 MG TAB PO SCH (21:02)
[2017-01-25] MEDS ORDERED: SODIUM CHL 0.9% 50ML MIN-BAG+ 50 ML IVPB ONE (01:47)
[2017-01-25] MEDS ORDERED: cefTRIAXone SODIUM 1 GM VIAL ONE (01:49)
[2017-01-25] MEDS: ACETAMINOPHEN 325 MG TAB PO PRN ×2 (01:53→08:54)
[2017-01-25] MEDS: SODIUM CHLORIDE 0.9% (FLUSH) 10 ML SYG IV PRN (03:29)
[2017-01-25] MEDS: cefTRIAXone SODIUM 1 GM in SODIUM CHL 0.9% 50ML MIN-BAG+ 50 ML IVPB SCH (03:30)
[2017-01-25] MEDS: INSULIN LISPRO 100 UNITS/ML PEN SUBCU SCH ×4 (07:15→20:59)
[2017-01-25] MEDS: metFORMIN HCL 500 MG TAB PO SCH ×2 (08:54→18:27)
[2017-01-25] MEDS: METOPROLOL SUCCINATE XL 50 MG TAB PO SCH (08:54)
[2017-01-25] MEDS: ENOXAPARIN SODIUM 40 MG/0.4 ML SYG SUBCU SCH (08:54)
[2017-01-25] MEDS: POTASSIUM CHLORIDE 10 MEQ TAB PO SCH (08:55)
[2017-01-25] MEDS ORDERED: HYDROcodone 5MG/APAP 325MG 1 EA TAB PO PRN (08:56)
[2017-01-25] MEDS: MULTIPLE VITAMIN INJ 10 ML, THIAMINE HCL INJ 100 MG in SODIUM CHLORIDE 0.9% 1000ML 1,00... IV SCH (13:08)
--- NOTE | 2017-01-25 14:00 | RAD ---
EXAM DESCRIPTION: Abdomen Flat Upright CLINICAL HISTORY: 71 years Female, diffuse lower abdominal pain COMPARISON: None. TECHNIQUE: Portable supine and upright views of the abdomen FINDINGS: Several loops of mildly dilated small bowel are observed in the mid abdomen. No fluid levels are observed. There is no free air seen. The lungs appear clear. IMPRESSION: Nonspecific bowel gas pattern with dilated loops of mid small bowel. Electronically signed by: Parminder Noble MD 01/25/2017 1:59 PM CDT
[2017-01-25] MEDS ORDERED: cefTRIAXone SODIUM 1 GM VIAL IM SCH (17:00)
[2017-01-25] MEDS ORDERED: LIDOCAINE 1% 10 ML VIAL INJ ONE (18:17)
[2017-01-25] MEDS: IV SET AND CAP CHANGE INJ INJ SCH (18:26)
[2017-01-25] MEDS: LIDOCAINE 1% 10 ML VIAL INJ ONE ×2 (18:52→19:09)
[2017-01-25] MEDS: BISACODYL TAB 5 MG TAB PO SCH (18:57)
[2017-01-25] MEDS: SODIUM CHLORIDE 0.9% (FLUSH) 10 ML SYG IV SCH (20:54)
[2017-01-25] MEDS: MAGNESIUM HYDROXIDE 30 ML UD PO SCH (20:58)
[2017-01-25] MEDS: SERTRALINE HCL 50 MG TAB PO SCH (20:58)
--- NOTE | 2017-01-25 21:08 | PN ---
DATE: 01/25/17 SUPERVISING PHYSICIAN: Mario Linares M.D. SUBJECTIVE: The patient continues to show improvement in her mental status. Still slightly confused as to location but is much more alert to her surroundings with reinforcement. She has had some abdominal discomfort, she notes, but has not yet had a bowel movement. She is no longer having any diarrhea and she remains afebrile. OBJECTIVE: VITAL SIGNS: T max 98.6, pulse 74, blood pressure 150/79, respirations 18, satting 95% on nasal cannula at 2 liters at rest. I's and O's are still no accurately measured as she is voiding and incontinent. Weight is 97.3 kg. CHEST: Lungs are clear to auscultation bilaterally. HEART: Regular rate and rhythm. ABDOMEN: Obese, somewhat tender towards the right lower quadrant and across the suprapubic region, but no rebound tenderness. Positive bowel sounds. EXTREMITIES: No clubbing, cyanosis or edema. NEUROLOGIC: She is alert to herself and remembers her location once she is reinforced with where she is, and realizes that she has been confused over the last several days. There is still no notable focal motor deficits. LABORATORY: Chemistries show sodium 135, potassium 3.8, BUN 9, creatinine 0.56 , chloride is 33 which is down from previous days of 37 and 36. Glucoses have been 132 to 148. Calcium 9.0. RADIOLOGY: There are no additional radiographic studies at this time, but there is an abdominal two view pending. ASSESSMENT: 1. Altered mental status felt to be secondary to a combination of urinary tract infection that has been treated in the outpatient setting complicated by dehydration and misuse of medications that included pain medicine and muscle relaxants. The patient continues to show slight improvement daily. 2. Moderate dehydration contributing to number 1 showing improvement after IV therapy. 3. Previous underlying urinary tract infection having been treated with antibiotics prior to admission with final culture results on admission showing no growth at 24 hours with the patient remaining on parenteral antibiotics that include Rocephin with the patient continuing to improve. 4. History of Alzheimer's exacerbated secondary to multiple underlying medical conditions that include urinary tract infection, dehydration and hyponatremia. 5. Hyponatremia on admission improved after IV therapy showing to be stable possibly contributing to initial altered mental status. 6. Chronic obstructive pulmonary disease in a former smoker without any exacerbation. 7. History of depression and anxiety. 8. Type 2 diabetes mellitus on oral therapy including Metformin, stable. 9. History of recent falls within the last 2 weeks prior to admission having been treated in the Emergency Department with Tylenol #3 as well as Flexeril with the patient being noncompliant with overuse of medications as directed resulting possibly in over sedation contributing to her previous falls as well as the altered mental status with underlying urinary tract infection contributing to her multiple falls prior to admission. 10. Severe insomnia secondary to the patient's altered mental status, improved after given Ativan and Haldol initially with the patient now sleeping at night and less confused not requiring any additional medications. PLAN: Will continue to work with the family and family welfare social work professor to work on discharge planning to possibly go to [facility] as the patient is at this point not safe to return home. Will have Physical Therapy consult as well, pending. She did lose her IV. She is a very hard stick. She has been stuck multiple times within the last 24 hours, therefore she is caught up on her fluids and she is taking adequate p.o. fluids. At this point, will utilize IM injections for her continued antibiotic therapy. Will plan to repeat another urinalysis and if this is clean with no other signs of infection, will stop the antibiotic therapy. Hopefully will be able to discharge her tomorrow to go to a care facility such as [facility]. Until then, will continue to monitor the patient closely and treat appropriately. #[id number] [facility]
[2017-01-25] MEDS ORDERED: ONDANSETRON ODT 8 MG TAB SL PRN (23:50)
[2017-01-26] MEDS: INSULIN LISPRO 100 UNITS/ML PEN SUBCU SCH ×4 (07:28→20:50)
[2017-01-26] MEDS: POTASSIUM CHLORIDE 10 MEQ TAB PO SCH (07:43)
[2017-01-26] MEDS: metFORMIN HCL 500 MG TAB PO SCH ×2 (07:44→19:28)
[2017-01-26] MEDS: BISACODYL TAB 5 MG TAB PO SCH (08:23)
[2017-01-26] MEDS: METOPROLOL SUCCINATE XL 50 MG TAB PO SCH (08:23)
[2017-01-26] MEDS: ACETAMINOPHEN 325 MG TAB PO PRN (08:24)
[2017-01-26] MEDS: ENOXAPARIN SODIUM 40 MG/0.4 ML SYG SUBCU SCH (08:24)
[2017-01-26] MEDS: SODIUM CHLORIDE 0.9% (FLUSH) 10 ML SYG IV SCH ×2 (14:36→20:51)
--- NOTE | 2017-01-26 19:56 | PN ---
DATE: 01/26/17 SUPERVISING PHYSICIAN: Mario Linares M.D. SUBJECTIVE: The patient is doing well today. She did have a bowel movement yesterday and feels better today. She says the abdominal pain has been decreased. She had a little bit of nausea after Milk of Magnesia. She has had no fevers. Her appetite is well. Continue to wait for discharge planning hopefully to be placed in a half-way or in a care facility, most likely [facility]. I did a Mini Mental Status Exam and she scored a 13 indicating a moderate disability indicating a need for 24 hour supervision. OBJECTIVE: VITAL SIGNS: T max 97.9, pulse 76, blood pressure 148/80, respirations 18, O2 sat was 92% on room air. I's and O's are not fully measured as she is incontinent. She has had a couple of bowel movements. Weight 97.9 kg which is decreased from admission of 98.5. CHEST: Lungs are clear to auscultation bilaterally. HEART: Regular rate and rhythm. ABDOMEN: Obese but soft, non-tender. Positive bowel sounds. EXTREMITIES: No clubbing, cyanosis or edema. NEUROLOGIC: She is alert to herself but not location or place or time, but can recall remote events, co-workers, jobs and family members. LABORATORY: Blood sugars remain stable at 113 to 142. Chemistries and CBC were not repeated today as they are stable. MICROBIOLOGY: Blood cultures have been negative after 4 days. Final urine culture at 48 hours showed no growth. Previous Clostridium Difficile A and B test was negative. Stool culture showed no enteric pathogens isolated at 72 hours. RADIOLOGY: Abdominal x-ray done on 01/25 showed nonspecific bowel gas pattern with dilated loops of small bowel. ASSESSMENT: 1. Altered mental status initially on admission felt to be secondary to a combination of previously underlying urinary tract infection that has since been treated to completion with antibiotics and complicated in the presence of dehydration and the misuse of medications that included pain medicines and muscle relaxants. The patient continues to show improvement and is near baseline status according to family members. 2. Moderate dehydration on admission contributing to number 1, improved and resolved after IV therapy with the patient taking oral fluids well. 3. History of previous urinary tract infection prior to admission with final culture results during this admission showing no growth at 48 hours with the patient having been on antibiotics to include Rocephin since admission, now stopped as the patient has shown no symptoms of dysuria or fevers. 4. History of Alzheimer's exacerbated by multiple underlying medical conditions as well as previous urinary tract infection, dehydration and hyponatremia scoring on Mini Mental Status Exam a 13 indicating moderate disability. 5. Hyponatremia on admission, improved after IV therapy and stable as the patient is taking adequate p.o. fluids. 6. Chronic obstructive pulmonary disease in a former smoker without any exacerbation. 7. History of depression and anxiety. 8. Type 2 diabetes mellitus on oral therapy with Metformin, stable. 9. History of multiple falls in the last 2 weeks prior to admission to the Emergency Department having been treated for pain with Tylenol #3 as well as Flexeril and the patient being noncompliant with the over use of medications possibly resulting in over sedation and contributing to additional falls as well as her altered mental status. Since admission, minimal pain medicine has been required and the patient's mental status has improved. 10. Severe insomnia on admission likely to the patient's previous altered mental status improved after initial Ativan and Haldol with the patient now showing good average sleep and mental status stable. PLAN: Will await final decision on placement of the patient in terminal gauger facility such as [facility]. Will continue to monitor the patient closely and anticipate possible discharge tomorrow. She has completed a course of antibiotics and no longer has an IV as she keeps pulling them out and is a very difficult patient to start IVs on. Will continue to monitor the patient closely until discharge and treat appropriately. Once discharged, she will need continued close followup with her primary care provider at [facility]. #[id number] [facility]
[2017-01-26] MEDS: MAGNESIUM HYDROXIDE 30 ML UD PO SCH (20:50)
[2017-01-26] MEDS: SERTRALINE HCL 50 MG TAB PO SCH (20:50)
[2017-01-27 06:34] VITALS: TEMP 97.4
[2017-01-27] MEDS: INSULIN LISPRO 100 UNITS/ML PEN SUBCU SCH ×2 (07:18→11:38)
[2017-01-27] MEDS: POTASSIUM CHLORIDE 10 MEQ TAB PO SCH (07:34)
[2017-01-27] MEDS: metFORMIN HCL 500 MG TAB PO SCH (07:34)
[2017-01-27] MEDS: METOPROLOL SUCCINATE XL 50 MG TAB PO SCH (08:58)
[2017-01-27] MEDS: BISACODYL TAB 5 MG TAB PO SCH (08:58)
[2017-01-27] MEDS: SODIUM CHLORIDE 0.9% (FLUSH) 10 ML SYG IV SCH (08:59)
[2017-01-27] MEDS: ENOXAPARIN SODIUM 40 MG/0.4 ML SYG SUBCU SCH (08:59)
[2017-01-27 10:33] VITALS: O2SAT 95
[2017-01-27 14:40] VITALS: BP 161/76
--- NOTE | 2017-01-28 08:54 | DS ---
SUPERVISING PHYSICIAN: Baldev Lreoy MD DISCHARGE DIAGNOSIS: 1. Altered mental status initially on admission felt to be secondary to a combination of previously underlying urinary tract infection that has since been treated to completion with antibiotics and complicated in the presence of dehydration and the misuse of medications that included pain medicines and muscle relaxants. The patient continues to show improvement and is near baseline status according to family members. 2. Moderate dehydration on admission contributing to number 1, improved and resolved after IV therapy with the patient taking oral fluids well. 3. History of previous urinary tract infection prior to admission with final culture results during this admission showing no growth at 48 hours with the patient having been on antibiotics to include Rocephin since admission, now stopped as the patient has shown no symptoms of dysuria or fevers. 4. History of Alzheimer's exacerbated by multiple underlying medical conditions as well as previous urinary tract infection, dehydration and hyponatremia scoring on Mini Mental Status Exam a 13 indicating moderate disability. 5. Hyponatremia on admission, improved after IV therapy and stable as the patient is taking adequate p.o. fluids. 6. Chronic obstructive pulmonary disease in a former smoker without any exacerbation. 7. History of depression and anxiety. 8. Type 2 diabetes mellitus on oral therapy with Metformin, stable. 9. History of multiple falls in the last 2 weeks prior to admission to the Emergency Department having been treated for pain with Tylenol #3 as well as Flexeril and the patient being noncompliant with the over use of medications possibly resulting in over sedation and contributing to additional falls as well as her altered mental status. Since admission, minimal pain medicine has been required and the patient's mental status has improved. 10. Severe insomnia on admission likely to the patient's previous altered mental status improved after initial Ativan and Haldol with the patient now showing good average sleep and mental status stable. HISTORY OF PRESENT ILLNESS: This is a 71-year-old female patient who presented to the Emergency Room on date of admission due to altered mental status. She lives with her sister and according to the sister, the patient's mental status has been worsening over the last week. She has been ambulatory, but has not been eating or drinking very much and was recently seen in the Emergency Room in the last several weeks for multiple falls with the last being on 01/15/17 when she was given pain medicine that included Tylenol No. 3 and muscle relaxers with Flexeril. The patient is a very poor historian and it was difficult to get her complete history from the patient. Her sister did say that her mental status had been deteriorating over the last two weeks and she has become more confused. They are not sure that she was taking her pain medication and Flexeril appropriately, so that may have contributed to some of her symptomatology. She had a normal white count in the Emergency Room without a shift. Bun was 29 and creatinine 0.89. Glucose was 98. Liver functions were within normal limits except for a slightly elevated alkaline phosphatase. Troponin was less than 0.02. BNP was 573. TSH was normal at 3.93. Urinalysis was basically within normal limits although she has had a history of frequent urinary tract infections. CT of the head per radiology interpretation showed no acute abnormalities on a noncontrast CT of the head. The sister notes that the patient has not been eating or drinking over the last two to three days. She was admitted to the medical/surgical floor in stable condition. HOSPITAL COURSE: She was taken off of all of her pain medications and she has not required any in the hospital. She is still quite confused and her mini mental status exam was 13, which shows moderate dementia. Given the fact that she has had multiple falls and is very confused, our assistant program director began initiation of shelter admission to [facility]. Her vital signs remained stable throughout her stay as well as her CBCs have remained stable. Her sodium improved to within normal limits and her stool culture, urine culture, and blood cultures all showed no growth. At this point , she can be discharged to [facility]. DISCHARGE PLAN: The patient will be discharged to [facility] in stable condition. She is to be put on an 1800 calorie ADA diet. I resumed her home medications. She has not been sent on any pain medications as she has not required them in the hospital and that may have contributed her symptomatology. Dr. Webster will see her at [facility]. She is a patient of [facility] and she can followup with that clinic as needed. DISCHARGE MEDICATIONS: 1. Metoprolol. 2. Naprosyn. 3. Metformin. 4. Potassium chloride. 5. Plavix. 6. Flomax. 7. Furosemide. Dr. Leroy is the collaborating physician and available for consultation. #[id number] [facility]
== END 2017-01-27 15:00 | DRG 690 ==
LOC: ER 10:46 → MS 14:26 → UNDOADMOB 14:26 → OBSVTOIN 01-24 13:46 → INTOOBSV 01-24 13:46 → MS 01-26 14:43 → UNDOADMOB 01-26 14:43 → OBSVTOIN 01-26 14:43 → INTOOBSV 01-26 14:43
PROVIDERS: ADMIT Nurse Practitioner Family; ATTEND Nurse Practitioner Acute Care
DX: N39.0 Urinary tract infection, site not specified (principal); E87.1 Hypo-osmolality and hyponatremia; F05 Delirium due to known physiological condition; R44.0 Auditory hallucinations; E86.0 Dehydration; G30.9 Alzheimer's disease, unspecified; F02.80 Dementia in other diseases classified elsewhere, unspecified severity, without behavioral disturbance, psychotic disturbance, mood disturbance, and anxiety; G47.00 Insomnia, unspecified; T40.2X1A Poisoning by other opioids, accidental (unintentional), initial encounter; T48.1X1A Poisoning by skeletal muscle relaxants [neuromuscular blocking agents], accidental (unintentional), initial encounter; R40.0 Somnolence; I10 Essential (primary) hypertension; E11.9 Type 2 diabetes mellitus without complications; R44.1 Visual hallucinations; F41.9 Anxiety disorder, unspecified; F32.9 Major depressive disorder, single episode, unspecified; J44.9 Chronic obstructive pulmonary disease, unspecified; G89.29 Other chronic pain; M54.5 Low back pain; F50.89 Other specified eating disorder; E66.9 Obesity, unspecified; Z91.14 Patient's other noncompliance with medication regimen; Z91.81 History of falling; Z88.0 Allergy status to penicillin; Z88.1 Allergy status to other antibiotic agents; Z88.2 Allergy status to sulfonamides; Z88.5 Allergy status to narcotic agent; Z88.8 Allergy status to other drugs, medicaments and biological substances; Z87.891 Personal history of nicotine dependence; Y92.009 Unspecified place in unspecified non-institutional (private) residence as the place of occurrence of the external cause

== ENCOUNTER → 2017-02-15 | Outpatient (CLI) | payer MEDICARE | END | disposition home or self-care (01) | LOC: GOCC 11:56 | PROVIDERS: ATTEND Internal Medicine | DX: R30.0 Dysuria (principal) ==

== ENCOUNTER → 2017-08-27 | Outpatient (CLI) | payer MEDICARE | END | disposition home or self-care (01) | LOC: GOCC 16:43 | PROVIDERS: ATTEND Internal Medicine | DX: N39.0 Urinary tract infection, site not specified (principal) ==

== ENCOUNTER 2017-08-28 08:25 | Emergency (ER) | payer MEDICARE ==
--- NOTE | 2017-08-28 08:34 | ED.PDOC ---
History of Present Illness - General Chief Complaint: General Stated Complaint: low oxygen saturation Time Seen by Provider: 08/28/17 08:28 Source: EMS notes reviewed, family Exam Limitations: clinical condition - dementia and somnolent - History of Present Illness Initial Comments: Lulu Mitchell 72 y/o female brought by ems after she was found to have low O2 saturation at [facility] this moring,somnolent less responsive blood sugar 190 fsbs.sister talking to her but goes back to sleep. Timing/Duration: 1-3 hours Severity: moderate Worsening Factors: nothing Associated Symptoms: denies symptoms Allergies/Adverse Reactions: Allergies Codeine Allergy (Verified 01/22/17 17:28) Penicillins Allergy (Verified 01/13/17 07:23) Unknown Sulfa Antibiotics Allergy (Verified 01/13/17 07:23) Unknown Promethazine [From Phenergan] Adverse Reaction (Verified 01/15/17 15:46) Home Medications: Ambulatory Orders Metformin HCl 500 mg PO BIDFD 01/22/17 Metoprolol Succinate [Metoprolol Succinate ER] 100 mg PO DAILY 01/22/17 Naproxen [Naprosyn] 500 mg PO DAILY PRN 01/22/17 Potassium Chloride Microencaps [Klor-Con M10] 10 meq PO DAILYBK 01/22/17 Clopidogrel Bisulfate [Plavix] 75 mg PO DAILY 01/26/17 Furosemide [Lasix] 20 mg PO DAILY 01/26/17 Tamsulosin HCl [Flomax] 0.4 mg PO DAILY 01/26/17 Nystatin (Topical) [Nystatin] 100,000 unit EX DAILY 08/28/17 Nystatin (Topical) [Nystatin] 100,000 unit EX PRN 08/28/17 Review of Systems - Review of Systems Unable to Obtain Due To: condition - dementia and somnolence Past Medical History (General) - Patient Medical History Hx Seizures: No Hx Stroke: No Hx Dementia: Yes Hx Asthma: Yes Hx of COPD: Yes - Also has seasonal allergies Hx Congestive Heart Failure: No Hx Hypertension: Yes Hx Diabetes: Yes Hx Cancer: Yes - Cervical Hx MRSA: No Hx Other PMH: Yes - glaucoma Surgical History: other - hysterectomy,Left eye enucleation-glaucoma - Vaccination History Hx Tetanus, Diphtheria Vaccination: No Hx Influenza Vaccination: No Hx Pneumococcal Vaccination: No - unknown - Social History Hx Tobacco Use: Yes - Quit 2013 Hx Alcohol Use: No Hx Substance Use: No Hx Depression: No Hx Physical Abuse: No Hx Emotional Abuse: No Hx Suspected Abuse: No - Activities of Daily Living Grooming Ability: Minimum Assistance Eating (Feeding) Ability: Minimum Assistance Toileting Ability: Minimum Assistance Family Medical History - Family History Mother Family History: Unknown Living Status: Hx Family Diabetes: Yes Hx Family Cancer: Yes - lung-dad Physical Exam - Physical Exam General Appearance: Comfortable, No apparent distress, Lethargic Eye Exam: right normal, left other - artificial eye Ears, Nose, Throat: hearing grossly normal - opens eyes with sister talking to her, normal ENT inspection, normal pharynx Neck: non-tender, supple Respiratory: no respiratory distress, no accessory muscle use, rales - bases Cardiovascular/Chest: normal peripheral pulses, regular rate, rhythm, no gallop , no murmur Peripheral Pulses: radial,right: 2+, radial,left: 2+, dorsalis pedis,right: 2+, dorsalis pedis,left: 2+ Gastrointestinal/Abdominal: non tender, soft, no organomegaly Back Exam: no vertebral tenderness Extremity: no calf tenderness, pedal edema - =1 Neurologic: no motor/sensory deficits, other - somnolent DTR: 0: Babinski, left, Babinski, right Skin Exam: normal color, warm/dry Lymphatic: no adenopathy Progress - Progress Progress: 08/28/17 09:25 Vital Signs - 8 hr 08/28/17 08/28/17 08:38 08:46 Temperature 97.6 F Pulse Rate [ 64 Left Brachial] Respiratory 20 20 Rate Blood Pressure 111/49 [Left Arm] O2 Sat by Pulse 59 L Oximetry 08/28/17 10:28 had tsh checked in the past normal - Results/Orders Results/Orders: Laboratory Tests 08/28/17 08/28/17 08/28/17 09:05 09:07 09:30 WBC RBC Hgb Hct MCV MCH MCHC RDW Plt Count MPV Absolute Neuts (auto) Absolute Lymphs (auto) Absolute Monos (auto) Absolute Eos (auto) Absolute Basos (auto) Neutrophils % Lymphocytes % Monocytes % Eosinophils % Basophils % Normal RBC Morphology PT INR PTT (SP) D-Dimer, Quantitative pCO2 84 H* 84 H* pO2 34 L* 94 HCO3 35.3 35.4 ABG pH 7.250 L* 7.250 L* ABG O2 Saturation 49.6 L* 96.8 ABG Base Excess 6.0 6.3 ABG Deoxyhemoglobin 48.8 H 3.1 Oxyhemoglobin % 47.9 L 93.4 L Carboxyhemoglobin % 1.6 H 1.9 H Methemoglobin % Sat 1.7 H 1.7 H Calc Total Hemoglobin 11.4 L 10.8 L Sodium Potassium Chloride Carbon Dioxide Anion Gap BUN Creatinine BUN/Creatinine Ratio Random Glucose Serum Osmolality Calcium Magnesium Creatine Kinase CK-MB (CK-2) CK-MB (CK-2) % Troponin I B-Natriuretic Peptide Urine Color Radha H Urine Appearance Sl cloudy Urine pH 5.0 Ur Specific [place] >= 1.030 Urine Protein 100 H Urine Glucose (UA) Negative Urine Ketones Negative Urine Blood Negative Urine Nitrite Negative Urine Bilirubin Small H Urine Urobilinogen 1.0 Ur Leukocyte Esterase Trace H Urine RBC 0 Urine WBC 3-5 H Ur Epithelial Cells 0 Urine Bacteria 3+ H Urine Mucus Trace 08/28/17 08/28/17 08/28/17 09:35 09:35 09:35 WBC 7.8 RBC 4.77 Hgb 11.5 L Hct 37.9 MCV 79.3 L MCH 24.1 L MCHC 30.3 L RDW 17.0 H Plt Count 262 MPV 9.4 Absolute Neuts (auto) 6.50 Absolute Lymphs (auto) 0.50 L Absolute Monos (auto) 0.70 Absolute Eos (auto) 0.00 Absolute Basos (auto) 0.10 Neutrophils % 83.1 H Lymphocytes % 6.4 L Monocytes % 9.5 H Eosinophils % 0.3 L Basophils % 0.7 Normal RBC Morphology 1+hypochromia PT 14.9 H INR 1.320 PTT (SP) 33.9 D-Dimer, Quantitative 359 H* pCO2 pO2 HCO3 ABG pH ABG O2 Saturation ABG Base Excess ABG Deoxyhemoglobin Oxyhemoglobin % Carboxyhemoglobin % Methemoglobin % Sat Calc Total Hemoglobin Sodium 137 Potassium 4.6 Chloride 93 L Carbon Dioxide 35 H Anion Gap 13.6 BUN 42 H Creatinine 1.25 BUN/Creatinine Ratio 33.6 H Random Glucose 144 H Serum Osmolality 286.8 Calcium 8.3 L Magnesium 1.7 L Creatine Kinase 93 CK-MB (CK-2) 2.2 CK-MB (CK-2) % Not Reportable Troponin I 0.03 B-Natriuretic Peptide 1410.0 H* Urine Color Urine Appearance Urine pH Ur Specific [place] Urine Protein Urine Glucose (UA) Urine Ketones Urine Blood Urine Nitrite Urine Bilirubin Urine Urobilinogen Ur Leukocyte Esterase Urine RBC Urine WBC Ur Epithelial Cells Urine Bacteria Urine Mucus 08/28/17 11:14 WBC RBC Hgb Hct MCV MCH MCHC RDW Plt Count MPV Absolute Neuts (auto) Absolute Lymphs (auto) Absolute Monos (auto) Absolute Eos (auto) Absolute Basos (auto) Neutrophils % Lymphocytes % Monocytes % Eosinophils % Basophils % Normal RBC Morphology PT INR PTT (SP) D-Dimer, Quantitative pCO2 pO2 HCO3 ABG pH ABG O2 Saturation ABG Base Excess ABG Deoxyhemoglobin Oxyhemoglobin % Carboxyhemoglobin % Methemoglobin % Sat Calc Total Hemoglobin Sodium Potassium Chloride Carbon Dioxide Anion Gap BUN Creatinine BUN/Creatinine Ratio Random Glucose Serum Osmolality Calcium Magnesium Creatine Kinase CK-MB (CK-2) CK-MB (CK-2) % Troponin I 0.02 B-Natriuretic Peptide Urine Color Urine Appearance Urine pH Ur Specific [place] Urine Protein Urine Glucose (UA) Urine Ketones Urine Blood Urine Nitrite Urine Bilirubin Urine Urobilinogen Ur Leukocyte Esterase Urine RBC Urine WBC Ur Epithelial Cells Urine Bacteria Urine Mucus - EKG/XRAY/CT EKG: Sinus, nonspecific ST T wave Chg Comments: heart rate-64 XRAY: chest - cardiomegaly with right sided pleural effusion CT Ordered: Yes - CTA chest:no PE;pulmonary edema Departure - Departure Clinical Impression: Respiratory failure Qualifiers: Chronicity: acute on chronic Respiratory failure complication: hypoxia and hypercapnia Qualified Code(s): J96.21 - Acute and chronic respiratory failure with hypoxia Pulmonary edema Qualifiers: Chronicity: acute Qualified Code(s): J81.0 - Acute pulmonary edema Diabetes Qualifiers: Diabetes mellitus type: type 2 Diabetes mellitus complication status: with unspecified complications Diabetes mellitus scaffold builder insulin use: without senior care use Qualified Code(s): E11.8 - Type 2 diabetes mellitus with unspecified complications Obesity Qualifiers: Obesity type: with alveolar hypoventilation Obesity classification: adult class 2 (BMI 35 ? 39.9) Serious obesity comorbidity presence: unspecified whether serious comorbidity present Body mass index: BMI 39.0-39.9 Qualified Code(s): E66.2 - Morbid (severe) obesity with alveolar hypoventilation Time of Disposition: 14:11 Disposition: Transfer to Hospital Condition: Fair Departure Forms: Patient Portal Self Enrollment Referrals: Priya Galeano NP [Nurse Practitioner] - 1-2 Weeks Home Medications: Ambulatory Orders Metformin HCl 500 mg PO BIDFD 01/22/17 Metoprolol Succinate [Metoprolol Succinate ER] 100 mg PO DAILY 01/22/17 Naproxen [Naprosyn] 500 mg PO DAILY PRN 01/22/17 Potassium Chloride Microencaps [Klor-Con M10] 10 meq PO DAILYBK 01/22/17 Clopidogrel Bisulfate [Plavix] 75 mg PO DAILY 01/26/17 Furosemide [Lasix] 20 mg PO DAILY 01/26/17 Tamsulosin HCl [Flomax] 0.4 mg PO DAILY 01/26/17 Nystatin (Topical) [Nystatin] 100,000 unit EX DAILY 08/28/17 Nystatin (Topical) [Nystatin] 100,000 unit EX PRN 08/28/17 Transfer to Outside Facility - Transfer Information Accepting Facility: [facility] - D/W Dr. Corona-Hospitalist Reason for Transfer: specialized care not available
[2017-08-28 08:47] VITALS: TEMP 97.6
--- NOTE | 2017-08-28 09:22 | RAD ---
Procedure: XR CHEST 1 VIEW Exam Date: 08/28/2017 9:07 AM CDT Ordering Provider: Rei Rodriguez Clinical Indication: low oxygen sats Comparison: January 22, 2017 Findings: The heart size is enlarged. Small right-sided pleural effusion is present with associated compressive atelectasis. The left lung is clear. No pneumothorax is present. Impression: Cardiomegaly. Small right-sided pleural effusion with associated passive atelectasis. Electronically signed by: Christopher Jackson MD 08/28/2017 9:20 AM CDT
[2017-08-28] MEDS ORDERED: BUMETANIDE 0.25 MG/ML VIAL IV ONE (10:13)
[2017-08-28] MEDS ORDERED: MAGNESIUM SULFATE PREMIX 2GM 2 GM in PREMIX BAG 1 BAG IVPB ONE (10:34)
[2017-08-28] MEDS ORDERED: MAGNESIUM SULFATE PREMIX 2GM 50 ML IVPB ONE (10:38)
[2017-08-28 11:45] VITALS: O2SAT 94
--- NOTE | 2017-08-28 12:01 | CT ---
Procedure: CT CHEST ANGIOGRAPHY WITH IV CONTRAST Exam Date: 08/28/2017 10:17 AM CDT Ordering Provider: Rei Rodriguez Clinical Indication: low saturation o2 Comparison: None Technique: Helically acquired axial images were obtained through the chest. Low osmolar IV contrast was given. Coronal 3D MIP reformats and Sagittal reformats were obtained. This exam was performed according to our departmental dose-optimization program which includes automated exposure control, adjustment of the mA and/or kV according to patient size and/or use of iterative reconstruction technique. Findings: No filling defects are seen in the pulmonary arteries. There is no evidence for aortic dissection. There is bilateral perihilar interstitial septal prominence. There is a right basilar consolidation with associated phgby-oi-llffgmit pleural effusion. No pneumothorax is present. Tracheal bronchial tree is unremarkable. Heart size is enlarged. Severe vascular calcifications are seen in the coronary arteries. No evidence of right heart strain. Partially imaged upper abdomen demonstrates a small sliding-type hiatal hernia. Chronic appearing left posterior and anterolateral rib deformities are present. Impression: No pulmonary embolus present. No aortic dissection. Probable pulmonary edema/volume overload. Small to moderate right-sided pleural effusion with associated extensive atelectasis. Cardiomegaly. Electronically signed by: Christopher Jackson MD 08/28/2017 11:59 AM CDT
[2017-08-28] MEDS ORDERED: ALPRAZolam 0.25 MG TAB ONE (12:49)
[2017-08-28] MEDS ORDERED: MORPHINE SULFATE INJ 10 MG/ML VIAL ONE (12:56)
[2017-08-28] MEDS ORDERED: MORPHINE SULFATE INJ 10 MG/ML VIAL IV ONE (12:57)
[2017-08-28 14:35] VITALS: BP 119/80
== END 2017-08-28 14:34 | disposition short-term general hospital (02) ==
LOC: ER 08:25
DX: J96.21 Acute and chronic respiratory failure with hypoxia (principal); J81.0 Acute pulmonary edema; E66.2 Morbid (severe) obesity with alveolar hypoventilation; E11.8 Type 2 diabetes mellitus with unspecified complications; Z85.41 Personal history of malignant neoplasm of cervix uteri; Z88.6 Allergy status to analgesic agent; Z88.0 Allergy status to penicillin; Z88.2 Allergy status to sulfonamides; Z87.891 Personal history of nicotine dependence
CPT/HCPCS: 36415; 36600; 71010; 71275; 80048; 81001; 82550; 82553; 82803; 82805; 83880; 84484; 85025; 85379; 85610; 85730; 87086; 87088; 87186; 93005; 94660; J2270; J3475; J3490

== ENCOUNTER → 2017-09-20 | Outpatient (CLI) | payer MEDICARE, MEDICAID | END | disposition home or self-care (01) | LOC: YCFC.O 13:44 | PROVIDERS: ATTEND Nurse Practitioner Family | DX: I50.9 Heart failure, unspecified (principal); R60.0 Localized edema ==

== ENCOUNTER 2017-11-01 06:22 | Emergency (ER) | payer MEDICARE ==
--- NOTE | 2017-11-01 06:45 | ED.PDOC ---
History of Present Illness - General Source: patient Exam Limitations: no limitations - History of Present Illness Initial Comments: the patient is 72-year-old female presenting from long-term care facility secondary to left knee pain that is of questionable duration. Some reports from the shelter say as long as a couple of weeks. The patient says a couple of days. There is no bruising around the knee but there does appear to be a significant effusion. It is uncertain if this is a new or old effusion. there is no real increased warmth around the knee. There is no crepitus. She does have some tenderness to palpation on the medial aspect of the knee and she does have some obvious chronic osteoarthritic changes. She does have some pain with flexion and with external rotation. Anterior drawer sign does not appear to be positive but it is difficult to get the patient to relax enough to do a good test. the patient is a very poor historian and a difficult exam due primarily to dementia. Timing/Duration: unsure Severity: moderate Improving Factors: nothing Worsening Factors: movement Associated Symptoms: denies symptoms <Alonzo Leroy - Last Filed: 11/01/17 06:41> <Arnulfo Ferguson - Last Filed: 11/01/17 08:42> - General Chief Complaint: Lower Extremity Injury Stated Complaint: left knee pain unknown reason Time Seen by Provider: 11/01/17 06:37 - History of Present Illness Allergies/Adverse Reactions: Allergies Codeine Allergy (Verified 11/01/17 06:46) Penicillins Allergy (Verified 11/01/17 06:46) Unknown Sulfa Antibiotics Allergy (Verified 11/01/17 06:46) Unknown Promethazine [From Phenergan] Adverse Reaction (Verified 11/01/17 06:46) Home Medications: Ambulatory Orders Metformin HCl 500 mg PO BIDFD 01/22/17 Metoprolol Succinate [Metoprolol Succinate ER] 100 mg PO DAILY 01/22/17 Furosemide [Lasix] 20 mg PO DAILY 01/26/17 Nystatin (Topical) [Nystatin] 100,000 unit TOP QSHIFT PRN 08/28/17 Lorazepam [Lorazepam Intensol] 0.5 - 1 ml PO Q2H PRN 11/01/17 Morphine 20Mg/ml Ud [Roxanol] 0.5 - 1 ml PO Q1H PRN 01/08/18 Potassium Chloride [Potassium Chloride ER] 10 meq PO DAILYBK 11/01/17 Review of Systems - Review of Systems Review of Systems: 11/01/17 06:45 given dementiavery limited and reliability: Constitutional: States: no symptoms reported EENTM: States: no symptoms reported Respiratory: States: no symptoms reported Cardiology: States: no symptoms reported Gastrointestinal/Abdominal: States: no symptoms reported Genitourinary: States: no symptoms reported Musculoskeletal: States: see HPI Skin: States: no symptoms reported Neurological: States: no symptoms reported - hronic changes only Endocrine: States: no symptoms reported Hematologic/Lymphatic: States: no symptoms reported All other Systems: No Change from Baseline <Alonzo Leroy - Last Filed: 11/01/17 06:41> Past Medical History (General) - Patient Medical History Hx Seizures: No Hx Stroke: No Hx Dementia: Yes Hx Asthma: Yes Hx of COPD: Yes - Also has seasonal allergies Hx Congestive Heart Failure: No Hx Hypertension: Yes Hx Diabetes: Yes Hx Cancer: Yes - Cervical Hx MRSA: No - Vaccination History Hx Tetanus, Diphtheria Vaccination: No Hx Influenza Vaccination: No Hx Pneumococcal Vaccination: No - unknown - Social History Hx Tobacco Use: Yes - Quit 2013 Hx Alcohol Use: No Hx Substance Use: No Hx Depression: No Hx Physical Abuse: No Hx Emotional Abuse: No Hx Suspected Abuse: No <Alonzo Leroy - Last Filed: 11/01/17 06:41> Family Medical History - Family History Mother Family History: Unknown Living Status: Hx Family Diabetes: Yes Hx Family Cancer: Yes - lung-dad <Alonzo Leroy - Last Filed: 11/01/17 06:41> Physical Exam - Physical Exam General Appearance: Alert, Comfortable, No apparent distress, Other - the patient is pleasant though significantly demented. Eye Exam: bilateral normal Ears, Nose, Throat: hearing grossly normal, normal ENT inspection, normal pharynx Neck: non-tender, supple Respiratory: no respiratory distress, no accessory muscle use Cardiovascular/Chest: normal peripheral pulses, no edema, other - regular rate Peripheral Pulses: radial,right: 2+, radial,left: 2+, dorsalis pedis,right: 2+, dorsalis pedis,left: 2+, posterior tibialis,right: 2+, posterior tibialis,left: 2+ Gastrointestinal/Abdominal: soft Rectal Exam: deferred Extremity: no pedal edema, no calf tenderness, normal capillary refill, swelling , other - see history of present illness Neurologic: lens examiner II-XII nml as tested, alert, normal mood/affect - mildly anxious as is appropriatewith her dementia. Skin Exam: normal color Comments: Vital Signs - 24 hr 11/01/17 06:25 Temperature 98.2 F Pulse Rate [ 66 monitor] Respiratory 20 Rate Blood Pressure 157/69 [Left Arm] O2 Sat by Pulse 92 L Oximetry <Alonzo Leroy - Last Filed: 11/01/17 06:41> Progress - Progress Progress: 11/01/17 06:47 the patient is a 72-year-old female presenting to the emergency room secondary to left knee pain of uncertain duration. There is a question of whether she had any trauma to cause the pain. Information is limited given dementia. X-ray of the knee will be obtained. <Alonzo Leroy - Last Filed: 11/01/17 06:41> - Progress Progress: 11/01/17 08:39 pt resting comfortably on re-exam. knee xray shows 6mm displacement of distal screw. this may be the source of pts pain. will d/c back to [facility] and recommend follow up with orthopedist as an outpatient. - EKG/XRAY/CT XRAY: knee - 6mm displacement of distal screw. advanced degenerative changes. <Arnulfo Ferguson H - Last Filed: 11/01/17 08:42> Departure - Departure Diet: regular diet <Alonzo Leroy - Last Filed: 11/01/17 06:41> - Departure Time of Disposition: 08:42 <Arnulfo Ferguson - Last Filed: 11/01/17 08:42> - Departure Clinical Impression: Knee arthropathy, Hardware failure Knee pain, left Qualifiers: Chronicity: acute Qualified Code(s): M25.562 - Pain in left knee Disposition: Discharge to SNF Condition: Good Departure Forms: ED Discharge - Pt. Copy, Patient Portal Self Enrollment Instructions: DI for Leg Pain Referrals: NANCY BONILLA [Primary Care Provider] - 1-2 Weeks Joce Kerr MD [Active Staff] - 1-2 Weeks Home Medications: Ambulatory Orders Metformin HCl 500 mg PO BIDFD 01/22/17 Metoprolol Succinate [Metoprolol Succinate ER] 100 mg PO DAILY 01/22/17 Furosemide [Lasix] 20 mg PO DAILY 01/26/17 Nystatin (Topical) [Nystatin] 100,000 unit TOP QSHIFT PRN 08/28/17 Lorazepam [Lorazepam Intensol] 0.5 - 1 ml PO Q2H PRN 11/01/17 Morphine 20Mg/ml Ud [Roxanol] 0.5 - 1 ml PO Q1H PRN 11/01/17 Potassium Chloride [Potassium Chloride ER] 10 meq PO DAILYBK 11/01/17
[2017-11-01 06:46] VITALS: TEMP 98.2
--- NOTE | 2017-11-01 07:22 | RAD ---
EXAM DESCRIPTION: Knee,Left Complete CLINICAL HISTORY: 72 years Female, left knee pain COMPARISON: None. FINDINGS: 3 views of left knee show plate and screw fixation device over the lateral aspect of the left femur distally. There is approximately 6 mm backing out of one of the distal screws. No other hardware complication is identified. There is an old healed distal left femoral fracture. No acute fracture or malalignment is identified. Is fairly advanced lateral joint space narrowing with less advanced degenerative changes in the medial and patellofemoral compartments. IMPRESSION: Postoperative changes in the left femur as described above with 6 mm backing out of one of the distal screws. Moderately advanced tricompartmental degenerative changes, worse in the lateral compartment. Electronically signed by: Gagandeep Bales MD 11/01/2017 7:21 AM [facility]
[2017-11-01 08:17] VITALS: O2SAT 93
[2017-11-01 10:14] VITALS: BP 177/90
== END 2017-11-01 10:14 ==
LOC: ER 06:22
DX: T84.093A Other mechanical complication of internal left knee prosthesis, initial encounter (principal); J44.9 Chronic obstructive pulmonary disease, unspecified; I10 Essential (primary) hypertension; E11.9 Type 2 diabetes mellitus without complications; F03.90 Unspecified dementia, unspecified severity, without behavioral disturbance, psychotic disturbance, mood disturbance, and anxiety; Z85.41 Personal history of malignant neoplasm of cervix uteri

== ENCOUNTER → 2017-11-21 | Outpatient (CLI) | payer MEDICARE | LOC: GOCC 11:27 | PROVIDERS: ATTEND Internal Medicine | DX: J11.1 Influenza due to unidentified influenza virus with other respiratory manifestations (principal) ==

== ENCOUNTER 2018-09-14 04:52 | Emergency (ER) | payer MEDICARE, OTHER ==
--- NOTE | 2018-09-14 05:01 | ED.PDOC ---
History of Present Illness - General Chief Complaint: General Stated Complaint: vomiting, blurred vision Time Seen by Provider: 09/14/18 04:57 Source: patient - History of Present Illness Initial Comments: Ms. Mitchell presents to the emergency department with complaint of vomiting with superimposed diarrhea and blurred vision that occurred just prior to arrival. Based on my discussion with EMS, the patient was in her usual state of health until she awoke this a.m. and was noted to have an episode of vomiting and diarrhea as well as associated blurred vision which resolved prior to the patient being transported to our facility. 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 The patient also states she is currently without abdominal pain and has no urge to have vomiting or diarrhea. Unfortunately further history is limited due to the patient's dementia. Allergies/Adverse Reactions: Allergies Codeine Allergy (Verified 09/14/18 05:24) Penicillins Allergy (Verified 09/14/18 05:24) Unknown Sulfa Antibiotics Allergy (Verified 09/14/18 05:24) Unknown Promethazine [From Phenergan] Adverse Reaction (Verified 09/14/18 05:24) Home Medications: Ambulatory Orders Metformin HCl 500 mg PO BIDFD 01/22/17 Metoprolol Succinate [Metoprolol Succinate ER] 100 mg PO DAILY 01/22/17 Furosemide [Lasix] 20 mg PO DAILY 01/26/17 Nystatin (Topical) [Nystatin] 100,000 unit TOP QSHIFT PRN 08/28/17 Potassium Chloride [Potassium Chloride ER] 10 meq PO DAILYBK 11/01/17 Acetaminophen [Tylenol] 500 mg PO PRN PRN 09/14/18 Cephalexin Monohydrate [Keflex] 500 mg PO Q6HRS #40 cap 09/14/18 Review of Systems - Review of Systems Unable to Obtain Due To: dementia Past Medical History (General) - Patient Medical History Hx Seizures: No Hx Stroke: No Hx Dementia: Yes Hx Asthma: Yes Hx of COPD: Yes - Also has seasonal allergies Hx Cardiac Disorders: No Hx Congestive Heart Failure: No Hx Pacemaker: No Hx Hypertension: Yes Hx Thyroid Disease: No Hx Diabetes: Yes Hx Gastroesophageal Reflux: No Hx Renal Disease: No Hx Cancer: Yes - Cervical Hx of HIV: No Hx Hepatitis C: No Hx MRSA: No - Vaccination History Hx Tetanus, Diphtheria Vaccination: No Hx Influenza Vaccination: No Hx Pneumococcal Vaccination: No - unknown - Social History Hx Tobacco Use: Yes - Quit 2013 Hx Alcohol Use: No Hx Substance Use: No Hx Depression: No Hx Physical Abuse: No Hx Emotional Abuse: No Hx Suspected Abuse: No Family Medical History - Family History Mother Family History: Unknown Living Status: Hx Family Diabetes: Yes Hx Family Cancer: Yes - lung-dad Physical Exam - Physical Exam General Appearance: Alert, Well Developed, Well Groomed, Well Hydrated Eye Exam: bilateral other - perrla bilaterally, the patient voices she is able to see in right eye but not in left. The left eye has mild medial deviation on exam which appears to be chronic. Ears, Nose, Throat: hearing grossly normal, normal ENT inspection Neck: non-tender Respiratory: normal breath sounds, no respiratory distress Cardiovascular/Chest: normal peripheral pulses, regular rate, rhythm Gastrointestinal/Abdominal: normal bowel sounds, non tender, soft Back Exam: normal inspection Extremity: normal range of motion, non-tender, normal inspection Neurologic: alert - knows self but disoriented to year, president and location. , normal mood/affect Skin Exam: normal color Progress - Progress Progress: 09/14/18 05:08 PT PRESENTATION APPEARS TO BE AN ACUTE EXACERBATION OF VOMITING/DIARRHEA AT THIS TIME. APPENDICITIS ON THE DDX DUE TO PRESENTATION WELL AGE. PANCREATITIS ALSO ON THE DDX WHICH WE WILL EVALUATE VIA LIPASE. AMI/DKA UNLIKELY DUE TO HOW THIS PATIENT PRESENTED AND NO COMPLAINTS OF SIGNS/SYMPTOMS OF THESE ISSUES. COLITIS ALSO A CONSIDERATION DUE TO PAIN LOCATION AND PRESENTATION WHICH WE WILL EVALUATE VIA CT SCAN. RENAL/URETERAL STONES ARE ALSO ON THE DIFFERENTIAL DUE TO PRESENTATION WELL LOCATION OF PAIN ON PRESENTATION. PT WILL RECEIVE BASICS LABS AND CT ABD/PEL TO EVALUATE FOR FOREMENTIONED INTRAABDOMINAL PATHOLOGY. FURTHERMORE DUE TO THE PATIENT'S QUESTIONABLE BLURRED VISION(WHICH THE PATIENT DOES NOT HAVE CURRENTLY) WILL ORDER A CT HEAD TO EVALUATE FOR INTRACRANIAL PATHOLOGY. THE PATIENT'S DISPO WILL BE DEPENDENT UPON THE PATIENT'S ED COURSE. 09/14/18 06:07 The patient is doing well at this time. I have reviewed available lab and radiological results at this time. 09/14/18 06:32 The patient remains well at this time. I have reviewed all lab and radiological results with the exception of the patient's UA at this time. The patient is tolerating by mouth fluids and she is asking to go home at this time. On repeat abdominal exam the patient has no signs of peritonitis noted. I will continue to monitor the patient as I await her UA results. 09/14/18 07:03 THE PATIENT REMAINS STABLE AT THIS TIME. IN LIGHT OF THE PATIENT TOLERATING BY MOUTH, NO VOMITING OR DIARRHEA IN THE ED, WELL BEING AT HER BASELINE, I FEEL THAT SHE IS APPROPRIATE FOR DISCHARGE BACK TO THE [facility]. THE PATIENT'S DISCHARGE INSTRUCTIONS WILL HAVE FOR HER TO FOLLOW-UP WITH HER DOCTOR AT THE [facility] IN THE NEXT 48-72 HOURS. HER DISCHARGE INSTRUCTIONS WILL ALSO HAVE WRITTEN RETURN PRECAUTIONS WELL. FURTHERMORE I DO NOT THINK THAT ADMISSION WOULD PROVIDE THE PATIENT WITH ANYTHING MORE THAN SHE COULD BE PROVIDED AT THE [facility] SINCE SHE WILL BE PLACED ON BY MOUTH KEFLEX TO TX HER INFECTOIN. IT SHOULD BE NOTED THAT ALL OF THE PATIENT'S QUESTIONS WERE ANSWERED PRIOR TO HER LEAVING THE ED. 09/14/18 07:10 - EKG/XRAY/CT EKG: Cornelius, Sinus, nonspecific ST T wave Chg Comments: rate of 56 bpm, axis is normal CT: CT abdomen and pelvis report reviewed. Departure - Departure Clinical Impression: UTI (urinary tract infection) Qualifiers: Urinary tract infection type: site unspecified Hematuria presence: with hematuria Qualified Code(s): N39.0 - Urinary tract infection, site not specified ; R31.9 - Hematuria, unspecified; R31.9 - Hematuria, unspecified ICD-10 Supporting Text: VOMITING/DIARRHEA (NONE SEEN IN THE ED) VISION CHANGES(NONE NOTED IN THE ED) Disposition: Discharge to Asst Living Condition: Fair Departure Forms: ED Discharge - Pt. Copy, Patient Portal Self Enrollment Diet: resume usual diet Referrals: NANCY BONILLA [Primary Care Provider] - 1-2 Days (PLEASE CALL AND SCHEDULE AN APPOINTMENT FOR THE PATIENT TO BE SEEN BY DR. BONILLA IN 24-48HOURS FOR RECHECK. PLEASE RETURN TO THE ED IF ANY CONCERNS ARISE SUCH RECURRENT VOMITING, FEVER , ALTERED MENTAL STATUS OR ANY OTHER ACUTE ISSUES ARISE.) Prescriptions: Cephalexin Monohydrate [Keflex] 500 mg PO Q6HRS #40 cap Home Medications: Ambulatory Orders Metformin HCl 500 mg PO BIDFD 01/22/17 Metoprolol Succinate [Metoprolol Succinate ER] 100 mg PO DAILY 01/22/17 Furosemide [Lasix] 20 mg PO DAILY 01/26/17 Nystatin (Topical) [Nystatin] 100,000 unit TOP QSHIFT PRN 08/28/17 Potassium Chloride [Potassium Chloride ER] 10 meq PO DAILYBK 11/01/17 Acetaminophen [Tylenol] 500 mg PO PRN PRN 09/14/18 Cephalexin Monohydrate [Keflex] 500 mg PO Q6HRS #40 cap 09/14/18
[2018-09-14 05:21] VITALS: TEMP 98.8
--- NOTE | 2018-09-14 05:38 | RAD ---
Chest single view on 09/14/2018 CLINICAL INDICATION: Cough COMPARISON: 08/28/2017 FINDINGS: There is moderate elevation of the right hemidiaphragm. Mild cardiomegaly is noted. Vascular calcification is noted in the aorta. Old left rib fracture is noted. The lungs are clear. Pulmonary vascularity is within normal limits. IMPRESSION: No acute disease. Electronically signed by: Delta Lombardo 09/14/2018 5:37 AM PURIFICATION DIRECTOR
--- NOTE | 2018-09-14 05:40 | CT ---
CT head without contrast on 09/14/2018 CLINICAL INDICATION: Blurred vision TECHNIQUE: Multiple axial images are obtained throughout the head without the administration of contrast. This exam was performed according to our departmental dose-optimization program, which includes automated exposure control, adjustment of the mA and/or kV according to patient size and/or use of iterative reconstruction technique. Total DLP is 859.97 mGy*cm. COMPARISON: 01/22/2017 FINDINGS: There is generalized cerebral atrophy. There is low density in the periventricular white matter consistent with chronic small vessel ischemic changes. There is no hydrocephalus. There is no hemorrhage. There are no abnormal extra-axial fluid collections. There is no mass, mass effect or midline shift. There is no CT evidence of acute infarct. No bony abnormality is noted. Left eye prosthesis is again noted. IMPRESSION: Atrophy and chronic small vessel ischemic changes with no acute intracranial abnormality. Electronically signed by: Delta Lombardo 09/14/2018 5:39 AM FORENSIC SPECIALIST
--- NOTE | 2018-09-14 05:45 | CT ---
CT abdomen and pelvis without contrast on 09/14/2018 CLINICAL INDICATION: Generalized abdominal pain TECHNIQUE: Multiple axial images are obtained throughout the abdomen and pelvis without the administration of contrast. This exam was performed according to our departmental dose-optimization program, which includes automated exposure control, adjustment of the mA and/or kV according to patient size and/or use of iterative reconstruction technique. Total DLP is 1495.5 mGy*cm. COMPARISON: 01/22/2017 FINDINGS: Abdomen: There is minimal right basilar atelectasis. The lung bases are otherwise clear. Coronary artery calcifications and other vascular calcifications are noted. There is elevation of the right hemidiaphragm. There is mild fatty infiltration of the liver. The patient is status post cholecystectomy. There are stable homogeneous bilateral adrenal nodules that are indeterminate by Hounsfield units measuring 20 on the right and 28 on the left. The right adrenal nodule measures 2.3 cm in the left measures 2.6 cm. Due to their stability these should be considered benign with no further follow-up imaging recommended and these likely represent adenomas. There are small bilateral renal cysts. The unenhanced solid abdominal organs are otherwise unremarkable. There is no abdominal adenopathy. There is no free fluid or free air within the abdomen. The abdominal portion of the GI tract is unremarkable. Pelvis: Pelvic organs appear unremarkable by CT. There is no free fluid in the pelvis. There is no pelvic adenopathy. There is diverticulosis. The pelvic portion of the GI tract is otherwise unremarkable. Degenerative changes are noted in the spine. There is an old compression fracture at L1. IMPRESSION: 1. Fatty infiltration of the liver. 2. Diverticulosis. 3. Otherwise no acute abnormality. Electronically signed by: Delta Lombardo 09/14/2018 5:44 AM [facility]
[2018-09-14 06:16] VITALS: O2SAT 93
[2018-09-14 06:41] VITALS: BP 142/69
[2018-09-14] MEDS ORDERED: LIDOCAINE 1% 2 ML VIAL INJ ONE (07:05)
[2018-09-14] MEDS ORDERED: SODIUM CHLORIDE 0.9% 100ML 100 ML IVPB ONE (07:07)
== END 2018-09-14 09:00 ==
LOC: ER 04:52
DX: N39.0 Urinary tract infection, site not specified (principal); R31.9 Hematuria, unspecified; R11.10 Vomiting, unspecified; R19.7 Diarrhea, unspecified; H53.8 Other visual disturbances; R00.1 Bradycardia, unspecified; F03.90 Unspecified dementia, unspecified severity, without behavioral disturbance, psychotic disturbance, mood disturbance, and anxiety; J44.9 Chronic obstructive pulmonary disease, unspecified; E11.9 Type 2 diabetes mellitus without complications; I10 Essential (primary) hypertension; Z85.41 Personal history of malignant neoplasm of cervix uteri; Z87.891 Personal history of nicotine dependence; Z79.899 Other long term (current) drug therapy; Z79.84 Long term (current) use of oral hypoglycemic drugs; Z88.5 Allergy status to narcotic agent; Z88.2 Allergy status to sulfonamides; Z88.0 Allergy status to penicillin; Z88.8 Allergy status to other drugs, medicaments and biological substances
CPT/HCPCS: 70450; 71045; 74176; 80053; 81001; 83690; 84484; 85025; 87086; 93005; J0696; J7050

== ENCOUNTER → 2019-01-06 | Outpatient (CLI) | payer MEDICARE, OTHER | LOC: GOCC 11:51 | PROVIDERS: ATTEND Internal Medicine | DX: R39.9 Unspecified symptoms and signs involving the genitourinary system (principal) ==

== ENCOUNTER → 2019-01-23 | Outpatient (CLI) | payer OTHER | LOC: BFHOS 16:06 | PROVIDERS: ATTEND Family Medicine | DX: R31.9 Hematuria, unspecified (principal) ==